=== PATIENT | male | born 1950 | race Hispanic/Latino ===

== ENCOUNTER 2018-08-10 16:23 | Emergency (ER) | payer SELFPAY ==
[2018-08-10 17:31] LABS: Basophils # (Auto) 0.1 K/mm3 (0.0-0.1); Basophils % (Auto) 1.1 % (0.0-1.8); Eosinophils # (Auto) 0.1 K/mm3 (0.0-0.4); Eosinophils % (Auto) 0.8 % (0.0-4.3); Hematocrit 40.7 % (35.5-45.6); Hemoglobin 14.2 gm/dl (11.8-15.2); Lymphocytes # (Auto) 1.6 K/mm3 (1.2-5.4); Lymphocytes % (Auto) 17.6 % (13.4-35.0); Mean Corpuscular HGB Conc 35 % (32-34); Mean Corpuscular Volume 92 fl (84-94); Monocytes # (Auto) 0.8 K/mm3 (0.0-0.8); Monocytes % (Auto) 8.4 % (0.0-7.3); Red Blood Count 4.43 M/mm3 (3.65-5.03); Red Cell Distribution Width 13.1 % (13.2-15.2)
[2018-08-10 17:34] LABS: Bilirubin,Urine NEG (Negative); Blood,Urine NEG (Negative); Color,Urine Yellow (Yellow); Protein,Urine <15 mg/dL mg/dL (Negative); Urobilinogen,Urine < 2.0 mg/dL (<2.0)
--- NOTE | 2018-08-10 17:42 | Emergency Department Report ---
ED General Adult HPI - General Chief complaint: Hyperglycemia Stated complaint: SENT FROM [facility] Time Seen by Provider: 08/10/18 16:58 Source: patient Mode of arrival: Ambulatory Limitations: No Limitations - History of Present Illness Initial comments: This is a 68-year-old male nontoxic, well nourished in appearance, no acute signs of distress presents to the ED for hyperglycemia. Patient stated that he stays in [place] and has been out of his medications. Patient stated that he takes Lantus 50 units night time, Levemir 50 units night time, and Metformin 500 mg BID. Patient stated that he was sent to the ED for medication refill. Patient denies any abdominal pain, weakness, fever, chills, headache, nausea, vomiting, chest pain, shortness of breathe, numbness or tingling. Patient denies any back pain. PAtient denies any urinary symptoms. Severity scale (0 -10): 0 Improves with: none Worsens with: none Associated Symptoms: denies other symptoms. denies: confusion, chest pain, cough, diaphoresis, fever/chills, headaches, loss of appetite, malaise, nausea/vomiting, rash, seizure, shortness of breath, syncope, weakness Treatments Prior to Arrival: none - Related Data Previous Rx's Medication Instructions Recorded Last Taken Type Insulin Detemir [Levemir] 50 unit SQ QHS 30 Days vial 08/10/18 Unknown Rx Insulin Glargine [Lantus] 50 unit SUB-Q QHS 30 Days ml 08/10/18 Unknown Rx metFORMIN [Glucophage] 500 mg PO BID #60 tablet 08/10/18 Unknown Rx Allergies Allergy/AdvReac Type Severity Reaction Status Date / Time benztropine [From Cogentin] Allergy Unknown Verified 08/10/18 16:45 haloperidol [From Haldol] Allergy Swelling Verified 08/10/18 16:45 Sulfa (Sulfonamide Allergy Unknown Verified 08/10/18 16:45 Antibiotics) ED Review of Systems ROS: Stated complaint: SENT FROM [facility] Other details as noted in HPI Constitutional: denies: chills, fever Eyes: denies: eye pain, eye discharge, vision change ENT: denies: ear pain, throat pain Respiratory: denies: cough, shortness of breath, wheezing Cardiovascular: denies: chest pain, palpitations Endocrine: no symptoms reported Gastrointestinal: denies: abdominal pain, nausea, diarrhea Genitourinary: denies: urgency, dysuria Musculoskeletal: denies: back pain, joint swelling, arthralgia Skin: denies: rash, lesions Neurological: denies: headache, weakness, paresthesias Psychiatric: denies: anxiety, depression Hematological/Lymphatic: denies: easy bleeding, easy bruising ED Past Medical Hx - Past Medical History Hx Hypertension: Yes Hx CVA: Yes (no deficits) Hx Heart Attack/AMI: Yes Hx Diabetes: Yes Hx Psychiatric Treatment: Yes (bipolar,pariod schizaphrina,manic depression ,multiple personalities) Additional medical history: heart disease,brain anursym, pt still drinks alcohol and smokes pot - Surgical History Past Surgical History?: No Additional Surgical History: ICU intubated with stroke- detoxing of alcohol and drugs - Social History Smoking Status: Current Every Day Smoker Substance Use Type: Alcohol, Marijuana - Medications Home Medications: Home Medications Medication Instructions Recorded Confirmed Last Taken Type Insulin Detemir [Levemir] 50 unit SQ QHS 30 Days vial 08/10/18 Unknown Rx Insulin Glargine [Lantus] 50 unit SUB-Q QHS 30 Days ml 08/10/18 Unknown Rx metFORMIN [Glucophage] 500 mg PO BID #60 tablet 08/10/18 Unknown Rx ED Physical Exam - General Limitations: No Limitations General appearance: alert, in no apparent distress - Head Head exam: Present: atraumatic, normocephalic - Eye Eye exam: Present: normal appearance - Neck Neck exam: Present: normal inspection, full ROM - Respiratory Respiratory exam: Present: normal lung sounds bilaterally. Absent: respiratory distress, wheezes, rales, rhonchi, chest wall tenderness, accessory muscle use, decreased breath sounds, prolonged expiratory - Cardiovascular Cardiovascular Exam: Present: regular rate, normal rhythm, normal heart sounds. Absent: bradycardia, tachycardia, irregular rhythm, systolic murmur, diastolic murmur, rubs, gallop - GI/Abdominal GI/Abdominal exam: Present: soft, normal bowel sounds. Absent: distended, tenderness, guarding, rebound, rigid, diminished bowel sounds - Rectal Rectal exam: Present: deferred - Extremities Exam Extremities exam: Present: normal inspection, full ROM - Back Exam Back exam: Present: normal inspection, full ROM - Neurological Exam Neurological exam: Present: alert, oriented X3 - Psychiatric Psychiatric exam: Present: normal affect, normal mood - Skin Skin exam: Present: warm, dry, intact, normal color. Absent: rash ED Course Vital Signs 08/10/18 16:37 Temperature 97.9 F Pulse Rate 74 Respiratory 18 Rate Blood Pressure 151/79 O2 Sat by Pulse 98 Oximetry - Reevaluation(s) Reevaluation #1: 08/10/18 17:42 Patient is speaking in full sentences with no signs of distress noted. - Consultations Consultation #1: 08/10/18 19:15 Patient has been consulted with Rafael Christine about patient history, physical exam, and labs and agrees to ED plan of care and discharge plan of care. ED Medical Decision Making - Lab Data Result diagrams: 08/10/18 17:12 08/10/18 17:12 - Medical Decision Making This is a 68-year-old male that presents with hyperglycemia. Patient is stable and was examined by me. Patient does have records from [place] with his past medications that he takes. Patient has requested for medication refill. Labs obtained and unremarkable with elevated glucose. Patient was consulted with Dr. Larose. Patient received 1L normal saline and 8 units Insulin. Glucose finger stick lowered to low 200s. Patient will be discharged with his past medications that he needs. Patient was instructed to Follow-up with a primary care doctor in 3-5 days or if symptoms worsen and continue return to emergency room as soon as possible. At time of discharge, the patient does not seem toxic or ill in appearance. No acute signs of distress noted. Patient agrees to discharge treatment plan of care. No further questions noted by the patient. Critical care attestation.: If time is entered above; I have spent that time in minutes in the direct care of this critically ill patient, excluding procedure time. ED Disposition Clinical Impression: Hyperglycemia, Medication refill Disposition: DC-01 TO HOME OR SELFCARE Is pt being admited?: No Does the pt Need Aspirin: No Condition: Stable Instructions: Diabetic Hyperglycemia (ED) Additional Instructions: Follow-up with a primary care doctor in 3-5 days or if symptoms worsen and continue return to emergency room as soon as possible. Prescriptions: Insulin Detemir [Levemir] 50 unit SQ QHS 30 Days vial Insulin Glargine [Lantus] 50 unit SUB-Q QHS 30 Days ml metFORMIN [Glucophage] 500 mg PO BID #60 tablet Referrals: PRIMARY CARE, [Referring] - 3-5 Days KALIE RICHTER MD [Staff Physician] - 3-5 Days [facility] [Outside] - 3-5 Days [facility] [Outside] - 3-5 Days Forms: Work/School Release Form(ED)
[2018-08-10 17:48] LABS: WBC,Urine < 1.0 /HPF (0.0-6.0)
[2018-08-10 17:53] LABS: BUN/Creatinine Ratio 19; Blood Urea Nitrogen 13 mg/dL (9-20); Calcium 9.2 mg/dL (8.4-10.2); Hemolysis Index 6
[2018-08-10] MEDS ORDERED: NACL 0.9% 1000 ML 1,000 ML IV ONE (17:56)
[2018-08-10] MEDS ORDERED: HumuLIN R IV ONE (17:56)
[2018-08-10 18:03] LABS: Platelet Count 158 K/mm3 (140-440)
[2018-08-10 20:22] VITALS: BP 145/82
== END 2018-08-10 21:42 | disposition home or self-care (01) ==
LOC: ED 16:23
DX: E11.65 Type 2 diabetes mellitus with hyperglycemia (principal); Z76.0 Encounter for issue of repeat prescription; I11.0 Hypertensive heart disease with heart failure; F31.9 Bipolar disorder, unspecified; F20.0 Paranoid schizophrenia; F17.200 Nicotine dependence, unspecified, uncomplicated; Z88.2 Allergy status to sulfonamides; Z88.5 Allergy status to narcotic agent
CPT/HCPCS: 36415; 80048; 81001; 82805; 82962; 85025; 96361; 96374; 99283; J7030; J1815

== ENCOUNTER 2018-08-11 20:03 | Emergency (ER) | payer MEDICARE ==
[2018-08-11 20:56] LABS: Basophils % (Auto) 0.3 % (0.0-1.8); Eosinophils # (Auto) 0.1 K/mm3 (0.0-0.4); Hematocrit 41.1 % (35.5-45.6); Hemoglobin 14.2 gm/dl (11.8-15.2); Lymphocytes # (Auto) 1.8 K/mm3 (1.2-5.4); Lymphocytes % (Auto) 23.4 % (13.4-35.0); Mean Corpuscular HGB Conc 34 % (32-34); Mean Corpuscular Volume 93 fl (84-94); Monocytes # (Auto) 0.8 K/mm3 (0.0-0.8); Monocytes % (Auto) 11.2 % (0.0-7.3); Platelet Count 207 K/mm3 (140-440); Red Blood Count 4.41 M/mm3 (3.65-5.03); Red Cell Distribution Width 13.1 % (13.2-15.2)
[2018-08-11 21:16] LABS: Bilirubin,Urine NEG (Negative); Blood,Urine NEG (Negative); Color,Urine Straw (Yellow); Protein,Urine <15 mg/dL mg/dL (Negative); Urobilinogen,Urine < 2.0 mg/dL (<2.0)
[2018-08-11 21:23] LABS: BUN/Creatinine Ratio 19; Blood Urea Nitrogen 13 mg/dL (9-20); Calcium 9.2 mg/dL (8.4-10.2); Hemolysis Index 10
[2018-08-11 21:23] LABS: WBC,Urine < 1.0 /HPF (0.0-6.0)
--- NOTE | 2018-08-11 21:23 | Emergency Department Report ---
ED General Adult HPI - General Chief complaint: Psych Stated complaint: SUICIDAL Time Seen by Provider: 08/11/18 21:05 Source: patient Mode of arrival: Ambulatory Limitations: No Limitations - History of Present Illness Initial comments: 68 y.o. male with history of diabetes mellitus, depression, presents with complaint of feeling depressed and feeling suicidal. Patient states that he was recently released from [facility] facility. Patient states he was to be transitioned to a 12-step program. He since states that the [place] facility did not provide him with his diabetes medications and he states that dealing with this, him having no medications has made him feel suicidal. She denies any auditory hallucinations or homicidal ideation. Patient also states that the new psych Juan Pablo was prescribed a [place] are making him feel suicidal as well. - Related Data Previous Rx's Medication Instructions Recorded Last Taken Type Insulin Detemir [Levemir] 50 unit SQ QHS 30 Days vial 08/10/18 Unknown Rx Insulin Glargine [Lantus] 50 unit SUB-Q QHS 30 Days ml 08/10/18 Unknown Rx metFORMIN [Glucophage] 500 mg PO BID #60 tablet 08/10/18 Unknown Rx Allergies Allergy/AdvReac Type Severity Reaction Status Date / Time benztropine [From Cogentin] Allergy Unknown Verified 08/10/18 16:45 haloperidol [From Haldol] Allergy Swelling Verified 08/10/18 16:45 Sulfa (Sulfonamide Allergy Unknown Verified 08/10/18 16:45 Antibiotics) ED Review of Systems ROS: Stated complaint: SUICIDAL Other details as noted in HPI Constitutional: denies: chills, fever Eyes: denies: eye pain, eye discharge, vision change ENT: denies: ear pain, throat pain Respiratory: denies: cough, shortness of breath, wheezing Cardiovascular: denies: chest pain, palpitations Endocrine: no symptoms reported Gastrointestinal: denies: abdominal pain, nausea, diarrhea Genitourinary: denies: urgency, dysuria Musculoskeletal: denies: back pain, joint swelling, arthralgia Skin: denies: rash, lesions Neurological: denies: headache, weakness, paresthesias Psychiatric: depression, suicidal thoughts. denies: anxiety Hematological/Lymphatic: denies: easy bleeding, easy bruising ED Past Medical Hx - Past Medical History Hx Hypertension: Yes Hx CVA: Yes (no deficits) Hx Heart Attack/AMI: Yes Hx Diabetes: Yes Hx Psychiatric Treatment: Yes (bipolar,pariod schizaphrina,manic depression,multiple personalities) Additional medical history: heart disease,brain anursym, pt still drinks alcohol and smokes pot - Surgical History Past Surgical History?: No Additional Surgical History: ICU intubated with stroke- detoxing of alcohol and drugs - Social History Smoking Status: Current Some Day Smoker Substance Use Type: None - Medications Home Medications: Home Medications Medication Instructions Recorded Confirmed Last Taken Type Insulin Detemir [Levemir] 50 unit SQ QHS 30 Days vial 08/10/18 Unknown Rx Insulin Glargine [Lantus] 50 unit SUB-Q QHS 30 Days ml 08/10/18 Unknown Rx metFORMIN [Glucophage] 500 mg PO BID #60 tablet 08/10/18 Unknown Rx ED Physical Exam - General Limitations: No Limitations General appearance: alert, in no apparent distress, other (eating in no acute distress) - Head Head exam: Present: atraumatic, normocephalic - Eye Eye exam: Present: normal appearance - ENT ENT exam: Present: mucous membranes moist - Neck Neck exam: Present: normal inspection - Respiratory Respiratory exam: Present: normal lung sounds bilaterally. Absent: respiratory distress - Cardiovascular Cardiovascular Exam: Present: regular rate, normal rhythm. Absent: systolic murmur, diastolic murmur, rubs, gallop - GI/Abdominal GI/Abdominal exam: Present: soft, normal bowel sounds - Rectal Rectal exam: Present: deferred - Extremities Exam Extremities exam: Present: normal inspection - Back Exam Back exam: Present: normal inspection - Neurological Exam Neurological exam: Present: alert, oriented X3 - Psychiatric Psychiatric exam: Present: depressed, suicidal ideation. Absent: homicidal ideation - Skin Skin exam: Present: warm, dry, intact, normal color. Absent: rash ED Course Vital Signs 08/11/18 08/11/18 08/12/18 20:29 22:42 01:00 Temperature 97.6 F 98.3 F 98.2 F Pulse Rate 88 77 82 Respiratory 18 18 Rate Blood Pressure 148/81 Blood Pressure 108/44 138/65 [Left] O2 Sat by Pulse 96 99 98 Oximetry ED Medical Decision Making - Lab Data Result diagrams: 08/11/18 20:40 08/11/18 23:55 - Medical Decision Making Patient placed on 1013. Patient received two liters of normal saline and IV insulin while in the ER. Patient's repeat CMP has improved and patient is medically clear. Patient currently awaiting potential transfer to inpatient psychiatric facility. - Differential Diagnosis DKA; Psychosis; Dehdyration; Anemia; Critical care attestation.: If time is entered above; I have spent that time in minutes in the direct care of this critically ill patient, excluding procedure time. ED Disposition Clinical Impression: Hyperglycemia, Depression, Suicidal ideation Disposition: DC/TX-65 PSY HOSP/PSY UNIT Is pt being admited?: No Condition: Stable Time of Disposition: 06:45 Print Language: MONTSERRATIAN
[2018-08-11 21:24] LABS: Amphetamine Screen,Urine PRESUMPTIVE NEGATIVE; Benzodiazepines Screen,Urine PRESUMPTIVE NEGATIVE; Cannabinoid Screen,Urine PRESUMPTIVE NEGATIVE; Cocaine Screen,Urine PRESUMPTIVE NEGATIVE; Methadone Screen,Urine PRESUMPTIVE NEGATIVE; Opiate Screen,Urine PRESUMPTIVE NEGATIVE
[2018-08-11] MEDS ORDERED: HumuLIN R IV ONE (21:26)
[2018-08-11] MEDS ORDERED: NACL 0.9% 1000 ML 1,000 ML IV ONE ×2 (21:27)
[2018-08-12 00:42] LABS: Alanine Aminotransferase 12 units/L (7-56); Albumin 4.1 g/dL (3.9-5); BUN/Creatinine Ratio 19; Blood Urea Nitrogen 13 mg/dL (9-20); Calcium 8.6 mg/dL (8.4-10.2); Hemolysis Index 11
[2018-08-12 03:17] VITALS: BP 138/65
[2018-08-12] MEDS ORDERED: HumuLIN R IV ONE (06:53)
[2018-08-12] MEDS ORDERED: GLUCOPHAGE PO SCH (11:00)
[2018-08-12] MEDS ORDERED: HumuLIN R SUB-Q ONE (13:19)
[2018-08-12] MEDS ORDERED: LANTUS SUB-Q SCH (22:00)
== END 2018-08-12 14:20 ==
LOC: ED 20:03 → EEVIPCON 20:03 → ED 08-12 14:20
DX: F32.9 Major depressive disorder, single episode, unspecified (principal); E11.65 Type 2 diabetes mellitus with hyperglycemia; I10 Essential (primary) hypertension; F17.200 Nicotine dependence, unspecified, uncomplicated; Z86.73 Personal history of transient ischemic attack (TIA), and cerebral infarction without residual deficits; Z88.8 Allergy status to other drugs, medicaments and biological substances; Z88.2 Allergy status to sulfonamides; Z79.4 Long term (current) use of insulin
CPT/HCPCS: 36415; 80048; 80053; 80307; 81001; 82962; 85025; 96361; 96372; 96374; 96376; 99285; G0480; J7030; 80320; J1815

== ENCOUNTER 2019-05-07 15:29 | Inpatient (IN) | payer MEDICARE ==
[2019-05-07 20:41] LABS: Basophils % (Auto) 0.7 % (0.0-1.8); Eosinophils # (Auto) 0.2 K/mm3 (0.0-0.4); Eosinophils % (Auto) 3.4 % (0.0-4.3); Hematocrit 32.4 % (35.5-45.6); Lymphocytes # (Auto) 1.5 K/mm3 (1.2-5.4); Lymphocytes % (Auto) 24.5 % (13.4-35.0); Mean Corpuscular HGB Conc 34 % (32-34); Mean Corpuscular Volume 91 fl (84-94); Monocytes # (Auto) 0.4 K/mm3 (0.0-0.8); Monocytes % (Auto) 7.5 % (0.0-7.3); Platelet Count 387 K/mm3 (140-440); Red Blood Count 3.55 M/mm3 (3.65-5.03); Red Cell Distribution Width 13.5 % (13.2-15.2)
[2019-05-07 21:01] LABS: Chol/HDL Ratio 6.66 %
[2019-05-07 21:03] LABS: Alanine Aminotransferase 27 units/L (7-56); BUN/Creatinine Ratio 18; Blood Urea Nitrogen 18 mg/dL (9-20); Calcium 8.5 mg/dL (8.4-10.2); Hemolysis Index 19
[2019-05-07] MEDS: GLUCOPHAGE PO SCH (21:55)
[2019-05-07] MEDS ORDERED: LANTUS SUB-Q SCH (22:00)
[2019-05-07] MEDS ORDERED: INSULIN DETEMIR 50 UNIT SQ SCH (22:00)
[2019-05-08] MEDS: GLUCOPHAGE PO SCH ×2 (09:25→21:39)
--- NOTE | 2019-05-08 12:14 | Consultation ---
History of Present Illness - Reason for Consult Consult date: 05/08/19 medical mx - History of Present Illness The patient is a 69 y/o retired male with history of Bipolar disorder, Schizophrenia, Cocaine use disorder, Alcohol use disorder and multiple medical problems including Obesity, HLD, HTN, DM, BPH and urinary retention on mendez's. He was transferred from outside hospital because he made suicidal threats with plan to shoot self in the head. medicine service consulted for medical mx. patient denies any chest pain or SOB. Past History Past Medical History: diabetes, hypertension, hyperlipidemia, other (urinary retension ) Past Surgical History: No surgical history Social history: smoking, alcohol abuse, other (cocaine abuse) Family history: diabetes, hypertension Medications and Allergies Allergies Allergy/AdvReac Type Severity Reaction Status Date / Time benztropine [From Cogentin] Allergy Unknown Verified 08/10/18 16:45 haloperidol [From Haldol] Allergy Swelling Verified 08/10/18 16:45 Sulfa (Sulfonamide Allergy Unknown Verified 08/10/18 16:45 Antibiotics) Home Medications Medication Instructions Recorded Confirmed Last Taken Type Insulin Detemir [Levemir] 50 unit SQ QHS 08/12/18 08/12/18 Unknown History Insulin Glargine [Lantus] 50 unit SUB-Q QHS 08/12/18 08/12/18 Unknown History metFORMIN [Glucophage] 500 mg PO BID 08/12/18 08/12/18 Unknown History Atorvastatin (Nf) [Lipitor (Nf)] 10 mg PO QHS 05/08/19 05/08/19 Unknown History Maikel Scott 1,000 mg PO QHS 05/08/19 05/08/19 Unknown History Maikel Scott 500 mg PO QAM 05/08/19 05/08/19 1 Day Ago History ~05/07/19 500 mg Metoprolol [Lopressor] 25 mg PO BID 05/08/19 05/08/19 05/07/19 History 25 mg Tamsulosin [Flomax] 0.4 mg PO QHS 05/08/19 05/08/19 Unknown History glipiZIDE [Glucotrol] 5 mg PO QDAY 05/08/19 05/08/19 1 Day Ago History ~05/07/19 5 mg traZODone [Desyrel] 100 mg PO QHS 05/08/19 05/08/19 Unknown History Active Meds: Active Medications Insulin Glargine (Lantus) 50 units SUB-Q QHS [facility] Last Admin: 05/07/19 22:50 Dose: 50 units Documented by: Insulin Human Lispro (Humalog) 0 unit SUB-Q ACHS [facility]; Protocol Metformin HCl (Glucophage) 500 mg PO BID [facility] Last Admin: 05/08/19 09:25 Dose: 500 mg Documented by: Review of Systems Constitutional: no weight loss, no anorexia Ears, nose, mouth and throat: no ear pain, no decreased hearing, no nasal congestion, no nasal discharge, no bleeding gums, no neck lump Cardiovascular: no chest pain, no orthopnea, no palpitations Respiratory: no cough, no congestion, no wheezing Gastrointestinal: no abdominal pain, no nausea, no vomiting Genitourinary Male: no hematuria, no flank pain, no discharge Rectal: no hemorrhoids Musculoskeletal: no neck stiffness, no morning stiffness, no muscle weakness Integumentary: no rash, no pruritis, no redness, no sores Neurological: no head injury, no weakness, no numbness, no tingling Psychiatric: irritability, mood swings Endocrine: no cold intolerance, no heat intolerance, no polyuria Hematologic/Lymphatic: no easy bruising, no easy bleeding Allergic/Immunologic: no urticaria Exam - Constitutional General appearance: Present: no acute distress, well-nourished - EENT Eyes: Present: PERRL ENT: hearing intact, clear oral mucosa - Neck Neck: Present: supple, normal ROM - Respiratory Respiratory effort: normal Respiratory: bilateral: CTA - Cardiovascular Heart Sounds: Present: S1 & S2. Absent: rub, click - Extremities Extremities: pulses symmetrical, No edema Peripheral Pulses: within normal limits - Abdominal General gastrointestinal: Present: soft, non-tender, non-distended, normal bowel sounds - Integumentary Integumentary: Present: clear, warm, dry - Musculoskeletal Musculoskeletal: gait normal, strength equal bilaterally - Psychiatric Psychiatric: appropriate mood/affect, intact judgment & insight - Neurologic Neurologic: CNII-XII intact, moves all extremities Results - Labs CBC & Chem 7: 05/07/19 20:21 05/07/19 20:21 Labs: Abnormal lab results 05/07/19 05/07/19 05/07/19 Range/Units 20:12 20:21 20:21 RBC 3.55 L (3.65-5.03) M/mm3 Hgb 11.0 L (11.8-15.2) gm/dl Hct 32.4 L (35.5-45.6) % [place] % (Auto) 7.5 H (0.0-7.3) % Sodium 134 L (137-145) mmol/L Chloride 94.3 L (98-107) mmol/L Glucose 355 H (75-100) mg/dL POC Glucose 401 H (70-105) Hemoglobin A1c (4-6) % Alkaline Phosphatase 167 H (35-129) units/L Albumin 3.0 L (3.9-5) g/dL Triglycerides (2-149) mg/dL HDL Cholesterol (40-59) mg/dL 05/07/19 05/07/19 05/08/19 Range/Units 20:21 20:21 06:40 RBC (3.65-5.03) M/mm3 Hgb (11.8-15.2) gm/dl Hct (35.5-45.6) % [place] % (Auto) (0.0-7.3) % Sodium (137-145) mmol/L Chloride (98-107) mmol/L Glucose (75-100) mg/dL POC Glucose 195 H (70-105) Hemoglobin A1c 7.2 H (4-6) % Alkaline Phosphatase (35-129) units/L Albumin (3.9-5) g/dL Triglycerides 171 H (2-149) mg/dL HDL Cholesterol 21 L (40-59) mg/dL 05/08/19 Range/Units 11:48 RBC (3.65-5.03) M/mm3 Hgb (11.8-15.2) gm/dl Hct (35.5-45.6) % [place] % (Auto) (0.0-7.3) % Sodium (137-145) mmol/L Chloride (98-107) mmol/L Glucose (75-100) mg/dL POC Glucose 306 H (70-105) Hemoglobin A1c (4-6) % Alkaline Phosphatase (35-129) units/L Albumin (3.9-5) g/dL Triglycerides (2-149) mg/dL HDL Cholesterol (40-59) mg/dL Assessment and Plan Acute psychosis/ SI - Management per primary Chronic medical issues Uncontrolled diabetes mellitus type 2 Hypertension Hyperlipidemia Obesity Urinary retention on mendez BPH - We'll resume home medications for hypertension and hyperlipidemia - We'll start long-acting insulin and sliding scale of insulin - Monitor blood glucose every before meals and at bedtime - Continue supportive care, monitor clinically - monitor UOP with mendez, cont flomax - DVT prophylaxis with Lovenox
[2019-05-08] MEDS ORDERED: D50W (25GM) Vial IV PRN (12:19)
[2019-05-08] MEDS: HumaLOG SUB-Q SCH ×3 (12:24→21:40)
[2019-05-08] MEDS: GLUCOTROL PO SCH (13:01)
[2019-05-08 18:05] LABS: Bilirubin,Urine NEG (Negative); Blood,Urine MOD (Negative); Color,Urine Yellow (Yellow); Mucus,Urine FEW /HPF; Urobilinogen,Urine < 2.0 mg/dL (<2.0)
[2019-05-08] MEDS: ENOXAPARIN SUB-Q SCH (21:39)
[2019-05-08] MEDS: METOPROLOL PO SCH (21:39)
[2019-05-08] MEDS: FLOMAX PO SCH (21:40)
[2019-05-08] MEDS: LANTUS SUB-Q SCH (21:51)
--- NOTE | 2019-05-09 03:52 | History and Physical Report ---
GP History & Physical - History of Present Illness Date of admission: 05/07/19 Date of Examination: 05/08/19 Reason for Admission: Danger to self, Impaired reality testing, Failure of Outpatient Treatment, Unable to care for self Chief Complaint: I am looking for a job History of Present Illness: The patient is a 69 y/o retired male with history of Bipolar disorder, Schizophrenia, Cocaine use disorder, Alcohol use disorder and multiple medical problems including Obesity, HLD, HTN, DM, BPH and urinary retention on mendez's. He was transferred from outside hospital because he made suicidal threats with plan to shoot self in the head. Patient is loud, irritable, agitated and uncooperative during my assessment. He is alert and fully oriented. He is grandiose, loud, and delusional. 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 He denies SI/HI/AVH/Paranoia. He admits to using Cocaine and drinking alcohol excessively but refuses to describe pattern of use. He states that he takes Depakote and some other medications for bipolar. He does not know the names of his other meds. Legal Status: Involuntary Patient Problems: Current Active Problems Alcohol use disorder (Acute) Cocaine use disorder (Acute) Schizoaffective disorder, mixed type (Acute) Reaction to Hospitalization: Resistant Medications and Allergies Allergies Allergy/AdvReac Type Severity Reaction Status Date / Time benztropine [From Cogentin] Allergy Unknown Verified 08/10/18 16:45 haloperidol [From Haldol] Allergy Swelling Verified 08/10/18 16:45 Sulfa (Sulfonamide Allergy Unknown Verified 08/10/18 16:45 Antibiotics) Home Medications Medication Instructions Recorded Confirmed Last Taken Type Insulin Detemir [Levemir] 50 unit SQ QHS 08/12/18 08/12/18 Unknown History Insulin Glargine [Lantus] 50 unit SUB-Q QHS 08/12/18 08/12/18 Unknown History metFORMIN [Glucophage] 500 mg PO BID 08/12/18 08/12/18 Unknown History Atorvastatin (Nf) [Lipitor (Nf)] 10 mg PO QHS 05/08/19 05/08/[address] 1,000 mg PO QHS 05/08/19 05/08/[address] 500 mg PO QAM 05/08/19 05/08/19 1 Day Ago History ~05/07/19 500 mg Metoprolol [Lopressor] 25 mg PO BID 05/08/19 05/08/19 05/07/19 History 25 mg Tamsulosin [Flomax] 0.4 mg PO QHS 05/08/19 05/08/19 Unknown History glipiZIDE [Glucotrol] 5 mg PO QDAY 05/08/19 05/08/19 1 Day Ago History ~05/07/19 5 mg traZODone [Desyrel] 100 mg PO QHS 05/08/19 05/08/19 Unknown History Active Meds: Active Medications Atorvastatin Calcium (Lipitor) 10 mg PO QHS [facility] Last Admin: 05/08/19 21:39 Dose: 10 mg Documented by: Dextrose (D50w (25gm) Vial) 50 gm IV PRN PRN PRN Reason: Hypoglycemia Enoxaparin Sodium (Lovenox) 40 mg SUB-Q QDAY@2200 [facility] Last Admin: 05/08/19 21:39 Dose: 40 mg Documented by: Glipizide (Glucotrol) 5 mg PO QDAY [facility] Last Admin: 05/08/19 13:01 Dose: 5 mg Documented by: Insulin Glargine (Lantus) 20 units SUB-Q [facility] Last Admin: 05/08/19 21:51 Dose: 20 units Documented by: Insulin Human Lispro (Humalog) 0 unit SUB-Q [facility]; Protocol Last Admin: 05/08/19 21:40 Dose: 6 unit Documented by: Metformin HCl (Glucophage) 500 mg PO BID [facility] Last Admin: 05/08/19 21:39 Dose: 500 mg Documented by: Metoprolol Tartrate (Lopressor) 25 mg PO BID [facility] Last Admin: 05/08/19 21:39 Dose: 25 mg Documented by: Tamsulosin HCl (Flomax) 0.4 mg PO QHS [facility] Last Admin: 05/08/19 21:40 Dose: 0.4 mg Documented by: Substance History - Substance History Drug Use: cocaine, marijuana Hx Tobacco Use: Yes Alcohol Use: Yes Past psychiatric history - Past Medical History Past Medical History: diabetes, hypertension, hyperlipidemia, other (BPH, Urinar retention on Mendez's) - past Psychiatric treatment and history Psych: Addictions, Bipolar, Depression, Schizophrenia psychiatric treatment history: Patient reports more than 30 prior inpatient psych admissions. He denies suicidal attempts. He has established out-patient care. - Social History Social history: , Lives alone, other (College educated, retired, mul tiple DUIs, no access to guns per patient) Review of Systems All systems: negative Psychiatric: irritability, mood swings Results - Results Labs/Vitals: Laboratory Last Values WBC 6.0 K/mm3 (4.5-11.0) 05/07/19 20:21 RBC 3.55 M/mm3 (3.65-5.03) L 05/07/19 20:21 Hgb 11.0 gm/dl (11.8-15.2) L 05/07/19 20:21 Hct 32.4 % (35.5-45.6) L 05/07/19 20:21 MCV 91 fl (84-94) 05/07/19 20:21 MCH 31 pg (28-32) 05/07/19 20:21 MCHC 34 % (32-34) 05/07/19 20:21 RDW 13.5 % (13.2-15.2) 05/07/19 20:21 Plt Count 387 K/mm3 (140-440) 05/07/19 20:21 Lymph % (Auto) 24.5 % (13.4-35.0) 05/07/19 20:21 [place] % (Auto) 7.5 % (0.0-7.3) H 05/07/19 20:21 Eos % (Auto) 3.4 % (0.0-4.3) 05/07/19 20:21 Baso % (Auto) 0.7 % (0.0-1.8) 05/07/19 20:21 Lymph # 1.5 K/mm3 (1.2-5.4) 05/07/19 20:21 [place] # 0.4 K/mm3 (0.0-0.8) 05/07/19 20:21 Eos # 0.2 K/mm3 (0.0-0.4) 05/07/19 20:21 Baso # 0.0 K/mm3 (0.0-0.1) 05/07/19 20:21 Seg Neutrophils % 63.9 % (40.0-70.0) 05/07/19 20:21 Seg Neutrophils # 3.8 K/mm3 (1.8-7.7) 05/07/19 20:21 Sodium 134 mmol/L (137-145) L 05/07/19 20:21 Potassium 4.3 mmol/L (3.6-5.0) 05/07/19 20:21 Chloride 94.3 mmol/L (98-107) L 05/07/19 20:21 Carbon Dioxide 25 mmol/L (22-30) 05/07/19 20:21 Anion Gap 19 mmol/L 05/07/19 20:21 BUN 18 mg/dL (9-20) 05/07/19 20:21 Creatinine 1.0 mg/dL (0.8-1.5) 05/07/19 20:21 Estimated GFR > 60 ml/min 05/07/19 20:21 BUN/Creatinine Ratio 18 % 05/07/19 20:21 Glucose 355 mg/dL (75-100) H 05/07/19 20:21 POC Glucose 260 (70-105) H 05/08/19 20:17 Hemoglobin A1c 7.2 % (4-6) H 05/07/19 20:21 Calcium 8.5 mg/dL (8.4-10.2) 05/07/19 20:21 Total Bilirubin 0.20 mg/dL (0.1-1.2) 05/07/19 20:21 AST 16 units/L (5-40) 05/07/19 20:21 ALT 27 units/L (7-56) 05/07/19 20:21 Alkaline Phosphatase 167 units/L (35-129) H 05/07/19 20:21 Total Protein 6.4 g/dL (6.3-8.2) 05/07/19 20:21 Albumin 3.0 g/dL (3.9-5) L 05/07/19 20:21 Albumin/Globulin Ratio 0.9 % 05/07/19 20:21 Triglycerides 171 mg/dL (2-149) H 05/07/19 20:21 Cholesterol 140 mg/dL (50-199) 05/07/19 20:21 LDL Cholesterol Direct 95 mg/dL (50-130) 05/07/19 20:21 HDL Cholesterol 21 mg/dL (40-59) L 05/07/19 20:21 Cholesterol/HDL Ratio 6.66 % 05/07/19 20:21 Urine Color Yellow (Yellow) 05/08/19 17:00 Urine Turbidity Clear (Clear) 05/08/19 17:00 Urine pH 6.0 (5.0-7.0) 05/08/19 17:00 Ur Specific [place] 1.010 (1.003-1.030) 05/08/19 17:00 Urine Protein 100 mg/dl mg/dL (Negative) 05/08/19 17:00 Urine Glucose (UA) 50 mg/dL (Negative) 05/08/19 17:00 Urine Ketones Neg mg/dL (Negative) 05/08/19 17:00 Urine Blood Mod (Negative) 05/08/19 17:00 Urine Nitrite Neg (Negative) 05/08/19 17:00 Urine Bilirubin Neg (Negative) 05/08/19 17:00 Urine Urobilinogen < 2.0 mg/dL (<2.0) 05/08/19 17:00 Ur Leukocyte Esterase Neg (Negative) 05/08/19 17:00 Urine WBC (Auto) 3.0 /HPF (0.0-6.0) 05/08/19 17:00 Urine RBC (Auto) 19.0 /HPF (0.0-6.0) 05/08/19 17:00 U Epithel Cells (Auto) < 1.0 /HPF (0-13.0) 05/08/19 17:00 Urine Mucus Few /HPF 05/08/19 17:00 Last Vital Signs Temp 98.2 F 05/08/19 09:15 Pulse 74 05/08/19 19:10 Resp 20 05/08/19 09:15 BP 133/75 05/08/19 09:15 Pulse Ox 100 05/08/19 19:10 Physical Examination - Constitutional Vitals: Vital Signs Temp Pulse Resp BP Pulse Ox 98.2 F 74 20 133/75 100 05/08/19 09:15 05/08/19 19:10 05/08/19 09:15 05/08/19 09:15 05/08/19 19:10 Temperature -Last 24 Hours Temperature 98.2 F General appearance: Present: no acute distress - EENT Eyes: Present: PERRL, EOM intact ENT: hearing intact, clear oral mucosa - Neck Neck: Present: supple, normal ROM - Respiratory Respiratory effort: normal Mental Status Exam - Vital signs Last Vital Signs Temp 98.2 F 05/08/19 09:15 Pulse 74 05/08/19 19:10 Resp 20 05/08/19 09:15 BP 133/75 05/08/19 09:15 Pulse Ox 100 05/08/19 19:10 - Exam Orientation: time, place, person Affect: agitated Mood: congruent with affect Thought content: delusions, grandiose Thought Process: Intact Perceptions: none Speech: normal rate and pattern Concentration: distractible Motor activity: restless, agitated Level of consciousness: alert Memory: Intact Interaction: hostile, irritable, guarded, uncooperative Assessment and Plan - Psychiatric problem (1) Schizoaffective disorder, mixed type Current Visit: Yes Status: Acute plan to address problem: Patient will be admitted for inpatient psychiatric evaluation, medication adjustment and close monitoring The patient's behavior, mood, sleep and appetite will be closely monitored. Patient will be enrolled in individual and group therapeutic sessions and encouraged to attend. Patient will be provided with a safe and structured environment. Patient's physical health needs will be addressed by the Hospitalist. Social Assessment will be completed and the Tugboat Mate will work with patient and family to ensure a suitable and safe disposition Medication adjustment will be made as clinically indicated (2) Alcohol use disorder Current Visit: Yes Status: Acute plan to address problem: As above (3) Cocaine use disorder Current Visit: Yes Status: Acute plan to address problem: As above Physician Certification - Certification Statement Physician Certification Statement: This is an acknowledgement statement that SALVADOR RYAN is a 69 year old M who requires inpatient psychiatric admission for treatment which could reasonably be expected to improve the patient's condition for Schizoaffective disorder Estimated period of time patient will need to remain in the hospital: 7 days Plan for post-hospital care: Out-patient follow up
[2019-05-09] MEDS ORDERED: GEODON IM PRN (04:38)
[2019-05-09] MEDS: HumaLOG SUB-Q SCH ×4 (08:13→21:45)
[2019-05-09] MEDS: GLUCOTROL PO SCH (09:11)
[2019-05-09] MEDS: GLUCOPHAGE PO SCH ×2 (09:11→21:46)
[2019-05-09] MEDS: METOPROLOL PO SCH ×2 (09:12→21:46)
--- NOTE | 2019-05-09 13:06 | Progress Note ---
Subjective Date of service: 05/09/19 Principal diagnosis: Schizoaffective disorder bipolar type Subjective Comment: Patient is calmer and pleasant today. He is apologetic for his behavior yesterday. He is still delusional and labile. He is grandiose. He reports being on Seroquel in the past and found it beneficial. MSE: Orientation: time, place, person Affect: normal Mood: congruent with affect Thought content: delusions, grandiose Thought Process: Intact Perceptions: none Speech: normal rate and pattern Concentration: distractible Motor activity: restless Level of consciousness: alert Memory: Intact Interaction: calm and cooperative Objective - Criteria for Continued Treatment Criteria for Continued Treatment: Stablizing Level of Functioning, Improving Emotional/Socia - Objective Observation Participation Level: Moderate Assessment and Plan - Patient Problems (1) Schizoaffective disorder, mixed type Current Visit: Yes Status: Acute Plan to address problem: Patient will be admitted for inpatient psychiatric evaluation, medication adjustment and close monitoring The patient's behavior, mood, sleep and appetite will be closely monitored. Patient will be enrolled in individual and group therapeutic sessions and encouraged to attend. Patient will be provided with a safe and structured environment. Patient's physical health needs will be addressed by the Hospitalist. Social Assessment will be completed and the Business Objects Developer will work with patient and family to ensure a suitable and safe disposition Medication adjustment will be made as clinically indicated Will start Seroquel 50mg qam and 200mg qhs (2) Alcohol use disorder Current Visit: Yes Status: Acute Plan to address problem: As above (3) Cocaine use disorder Current Visit: Yes Status: Acute Plan to address problem: As above Medications and Allergies Allergies Allergy/AdvReac Type Severity Reaction Status Date / Time benztropine [From Cogentin] Allergy Unknown Verified 08/10/18 16:45 haloperidol [From Haldol] Allergy Swelling Verified 08/10/18 16:45 Sulfa (Sulfonamide Allergy Unknown Verified 08/10/18 16:45 Antibiotics) Home Medications Medication Instructions Recorded Confirmed Last Taken Type Insulin Detemir [Levemir] 50 unit SQ QHS 08/12/18 08/12/18 Unknown History Insulin Glargine [Lantus] 50 unit SUB-Q QHS 08/12/18 08/12/18 Unknown History metFORMIN [Glucophage] 500 mg PO BID 08/12/18 08/12/18 Unknown History Atorvastatin (Nf) [Lipitor (Nf)] 10 mg PO QHS 05/08/19 05/08/19 Unknown History Maikel Scott 1,000 mg PO QHS 05/08/19 05/08/19 Unknown History Maikel Scott 500 mg PO QA 05/08/19 05/08/19 1 Day Ago History ~05/07/19 500 mg Metoprolol [Lopressor] 25 mg PO BID 05/08/19 05/08/19 05/07/19 History 25 mg Tamsulosin [Flomax] 0.4 mg PO QHS 05/08/19 05/08/19 Unknown History glipiZIDE [Glucotrol] 5 mg PO QDAY 05/08/19 05/08/19 1 Day Ago History ~05/07/19 5 mg traZODone [Desyrel] 100 mg PO QHS 05/08/19 05/08/19 Unknown History Active Meds: Active Medications Atorvastatin Calcium (Lipitor) 10 mg PO QHS [facility] Last Admin: 05/08/19 21:39 Dose: 10 mg Documented by: Dextrose (D50w (25gm) Vial) 50 gm IV PRN PRN PRN Reason: Hypoglycemia Divalproex Sodium ([place]ote ) 500 mg PO BID [facility] Last Admin: 05/09/19 09:11 Dose: 500 mg Documented by: Enoxaparin Sodium (Lovenox) 40 mg SUB-Q QDAY@2200 [facility] Last Admin: 05/08/19 21:39 Dose: 40 mg Documented by: Glipizide (Glucotrol) 5 mg PO QDAY [facility] Last Admin: 05/09/19 09:11 Dose: 5 mg Documented by: Insulin [facility] ([facility]us) [facility] Last Admin: 05/08/19 21:51 Dose: 20 units Documented by: Insulin Human Lispro (Humalog) 0 unit SUB-Q [facility]; Protocol Last Admin: 05/09/19 12:09 Dose: 4 unit Documented by: Metformin HCl (Glucophage) 500 mg PO BID [facility] Last Admin: 05/09/19 09:11 Dose: 500 mg Documented by: Metoprolol Tartrate (Lopressor) 25 mg PO BID [facility] Last Admin: 05/09/19 09:12 Dose: 25 mg Documented by: Tamsulosin HCl (Flomax) 0.4 mg PO QHS [facility] Last Admin: 05/08/19 21:40 Dose: 0.4 mg Documented by: Ziprasidone (Geodon) 20 mg IM Q4H PRN PRN Reason: Agitation Results - Results Labs/Vitals: Laboratory Last Values WBC 6.0 K/mm3 (4.5-11.0) 05/07/19 20:21 RBC 3.55 M/mm3 (3.65-5.03) L 05/07/19 20:21 Hgb 11.0 gm/dl (11.8-15.2) L 05/07/19 20:21 Hct 32.4 % (35.5-45.6) L 05/07/19 20:21 MCV 91 fl (84-94) 05/07/19 20:21 MCH 31 pg (28-32) 05/07/19 20:21 MCHC 34 % (32-34) 05/07/19 20:21 RDW 13.5 % (13.2-15.2) 05/07/19 20:21 Plt Count 387 K/mm3 (140-440) 05/07/19 20:21 Lymph % (Auto) 24.5 % (13.4-35.0) 05/07/19 20:21 [place] % (Auto) 7.5 % (0.0-7.3) H 05/07/19 20:21 Eos % (Auto) 3.4 % (0.0-4.3) 05/07/19 20:21 Baso % (Auto) 0.7 % (0.0-1.8) 05/07/19 20:21 Lymph # 1.5 K/mm3 (1.2-5.4) 05/07/19 20:21 [place] # 0.4 K/mm3 (0.0-0.8) 05/07/19 20:21 Eos # 0.2 K/mm3 (0.0-0.4) 05/07/19 20:21 Baso # 0.0 K/mm3 (0.0-0.1) 05/07/19 20:21 Seg Neutrophils % 63.9 % (40.0-70.0) 05/07/19 20:21 Seg Neutrophils # 3.8 K/mm3 (1.8-7.7) 05/07/19 20:21 Sodium 134 mmol/L (137-145) L 05/07/19 20:21 Potassium 4.3 mmol/L (3.6-5.0) 05/07/19 20:21 Chloride 94.3 mmol/L (98-107) L 05/07/19 20:21 Carbon Dioxide 25 mmol/L (22-30) 05/07/19 20:21 Anion Gap 19 mmol/L 05/07/19 20:21 BUN 18 mg/dL (9-20) 05/07/19 20:21 Creatinine 1.0 mg/dL (0.8-1.5) 05/07/19 20:21 Estimated GFR > 60 ml/min 05/07/19 20:21 BUN/Creatinine Ratio 18 % 05/07/19 20:21 Glucose 355 mg/dL (75-100) H 05/07/19 20:21 POC Glucose 241 (70-105) H 05/09/19 11:35 Hemoglobin A1c 7.2 % (4-6) H 05/07/19 20:21 Calcium 8.5 mg/dL (8.4-10.2) 05/07/19 20:21 Total Bilirubin 0.20 mg/dL (0.1-1.2) 05/07/19 20:21 AST 16 units/L (5-40) 05/07/19 20:21 ALT 27 units/L (7-56) 05/07/19 20:21 Alkaline Phosphatase 167 units/L (35-129) H 05/07/19 20:21 Total Protein 6.4 g/dL (6.3-8.2) 05/07/19 20:21 Albumin 3.0 g/dL (3.9-5) L 05/07/19 20:21 Albumin/Globulin Ratio 0.9 % 05/07/19 20:21 Triglycerides 171 mg/dL (2-149) H 05/07/19 20:21 Cholesterol 140 mg/dL (50-199) 05/07/19 20:21 LDL Cholesterol Direct 95 mg/dL (50-130) 05/07/19 20:21 HDL Cholesterol 21 mg/dL (40-59) L 05/07/19 20:21 Cholesterol/HDL Ratio 6.66 % 05/07/19 20:21 Urine Color Yellow (Yellow) 05/08/19 17:00 Urine Turbidity Clear (Clear) 05/08/19 17:00 Urine pH 6.0 (5.0-7.0) 05/08/19 17:00 Ur Specific [place] 1.010 (1.003-1.030) 05/08/19 17:00 Urine Protein 100 mg/dl mg/dL (Negative) 05/08/19 17:00 Urine Glucose (UA) 50 mg/dL (Negative) 05/08/19 17:00 Urine Ketones Neg mg/dL (Negative) 05/08/19 17:00 Urine Blood Mod (Negative) 05/08/19 17:00 Urine Nitrite Neg (Negative) 05/08/19 17:00 Urine Bilirubin Neg (Negative) 05/08/19 17:00 Urine Urobilinogen < 2.0 mg/dL (<2.0) 05/08/19 17:00 Ur Leukocyte Esterase Neg (Negative) 05/08/19 17:00 Urine WBC (Auto) 3.0 /HPF (0.0-6.0) 05/08/19 17:00 Urine RBC (Auto) 19.0 /HPF (0.0-6.0) 05/08/19 17:00 U Epithel Cells (Auto) < 1.0 /HPF (0-13.0) 05/08/19 17:00 Urine Mucus Few /HPF 05/08/19 17:00 Last Vital Signs Temp 98.0 F 05/09/19 09:01 Pulse 71 05/09/19 09:12 Resp 16 05/09/19 09:01 BP 114/64 05/09/19 09:12 Pulse Ox 100 05/09/19 09:01
[2019-05-09 18:50] LABS: Amphetamine Screen,Urine PRESUMPTIVE NEGATIVE; Benzodiazepines Screen,Urine PRESUMPTIVE NEGATIVE; Cannabinoid Screen,Urine PRESUMPTIVE NEGATIVE; Cocaine Screen,Urine PRESUMPTIVE NEGATIVE; Methadone Screen,Urine PRESUMPTIVE NEGATIVE; Opiate Screen,Urine PRESUMPTIVE NEGATIVE
[2019-05-09] MEDS: LANTUS SUB-Q SCH (21:40)
[2019-05-09] MEDS: FLOMAX PO SCH (21:46)
[2019-05-09] MEDS: ENOXAPARIN SUB-Q SCH (21:46)
--- NOTE | 2019-05-10 07:10 | Progress Note ---
Subjective Date of service: 05/10/19 Principal diagnosis: Schizoaffective disorder bipolar type Subjective Comment: Patient is calm and pleasant. Pt stated that he slept well, eating well, compliant with meds and has showered and feels well today. Pt denies hallucinations and denies wanting to harm himself or others. Pt stated that he his disabled and denies any side effects from his medications. - Per nursing note, Patient slept 8+ hours through the night. PT is Compliant with medications, eating well and denies SI/HI/AVH. MSE: Orientation: time, place, person Affect: normal Mood: congruent with affect Thought content: WNL Thought Process: Intact Perceptions: none Speech: normal rate and pattern Concentration: Adequate Motor activity: normal Level of consciousness: alert Memory: Intact Interaction: calm and cooperative Objective - Criteria for Continued Treatment Criteria for Continued Treatment: Improving Level of Functioning, Stablizing Level of Functioning - Mental Status Mental Status: Oriented x 3 - Objective Observation Participation Level: Full Assessment and Plan - Patient Problems (1) Schizoaffective disorder, mixed type Current Visit: Yes Status: Acute Plan to address problem: Patient will be admitted for inpatient psychiatric evaluation, medication adjustment and close monitoring The patient's behavior, mood, sleep and appetite will be closely monitored. Patient will be enrolled in individual and group therapeutic sessions and encouraged to attend. Patient will be provided with a safe and structured environment. Patient's physical health needs will be addressed by the Hospitalist. Social Assessment will be completed and the [facility] [employer]isher will work with patient and family to ensure a suitable and safe disposition Medication adjustment will be made as clinically indicated (2) Alcohol use disorder Current Visit: Yes Status: Acute Plan to address problem: As above (3) Cocaine use disorder Current Visit: Yes Status: Acute Plan to address problem: As above Medications and Allergies Allergies Allergy/AdvReac Type Severity Reaction Status Date / Time benztropine [From Cogentin] Allergy Unknown Verified 08/10/18 16:45 haloperidol [From Haldol] Allergy Swelling Verified 08/10/18 16:45 Sulfa (Sulfonamide Allergy Unknown Verified 08/10/18 16:45 Antibiotics) Home Medications Medication Instructions Recorded Confirmed Last Taken Type Insulin Detemir [Levemir] 50 unit SQ QHS 08/12/18 08/12/18 Unknown History Insulin Glargine [Lantus] 50 unit SUB-Q QHS 08/12/18 08/12/18 Unknown History metFORMIN [Glucophage] 500 mg PO BID 08/12/18 05/09/19 Unknown History Atorvastatin (Nf) [Lipitor (Nf)] 10 mg PO QHS 05/08/19 05/08/19 Unknown History Maikel Scott 1,000 mg PO QHS 05/08/19 05/08/19 Unknown History Maryannakofariba Scott 500 mg PO QAM 05/08/19 05/08/19 1 Day Ago History ~05/07/19 500 mg Metoprolol [Lopressor] 25 mg PO BID 05/08/19 05/08/19 05/07/19 History 25 mg Tamsulosin [Flomax] 0.4 mg PO QHS 05/08/19 05/08/19 Unknown History glipiZIDE [Glucotrol] 5 mg PO QDAY 05/08/19 05/08/19 1 Day Ago History ~05/07/19 5 mg traZODone [Desyrel] 100 mg PO QHS 05/08/19 05/08/19 Unknown History Active Meds: Active Medications Atorvastatin Calcium (Lipitor) 10 mg PO QHS [facility] Last Admin: 05/09/19 21:46 Dose: 10 mg Documented by: Dextrose (D50w (25gm) Vial) 50 gm IV PRN PRN PRN Reason: Hypoglycemia Divalproex Sodium (Depakote Dr) 500 mg PO BID [facility] Last Admin: 05/09/19 21:45 Dose: 500 mg Documented by: Enoxaparin Sodium (Lovenox) 40 mg SUB-Q QDAY@2200 [facility] Last Admin: 05/09/19 21:46 Dose: 40 mg Documented by: Glipizide (Glucotrol) 5 mg PO QDAY [facility] Last Admin: 05/09/19 09:11 Dose: 5 mg Documented by: [facility]ulin [facility]) [facility] Admin: 05/09/19 21:40 Dose: 20 units Documented by: Insulin Human Lispro (Humalog) 0 unit SUB-Q [facility]; Protocol Last Admin: 05/09/19 21:45 Dose: 6 unit Documented by: Metformin HCl (Glucophage) 500 mg PO BID [facility] Last Admin: 05/09/19 21:46 Dose: 500 mg Documented by: Metoprolol Tartrate (Lopressor) 25 mg PO BID [facility] Last Admin: 05/09/19 21:46 Dose: 25 mg Documented by: Quetiapine Fumarate (Seroquel) 50 mg PO DAILY [facility] Last Admin: 05/09/19 15:09 Dose: 50 mg Documented by: Quetiapine Fumarate (Seroquel) 200 mg PO QHS [facility] Last Admin: 05/09/19 21:46 Dose: 200 mg Documented by: Tamsulosin HCl (Flomax) 0.4 mg PO QHS [facility] Last Admin: 05/09/19 21:46 Dose: 0.4 mg Documented by: Ziprasidone (Geodon) 20 mg IM Q4H PRN PRN Reason: Agitation Results - Results Labs/Vitals: Laboratory Last Values WBC 6.0 K/mm3 (4.5-11.0) 05/07/19 20:21 RBC 3.55 M/mm3 (3.65-5.03) L 05/07/19 20:21 Hgb 11.0 gm/dl (11.8-15.2) L 05/07/19 20:21 Hct 32.4 % (35.5-45.6) L 05/07/19 20:21 MCV 91 fl (84-94) 05/07/19 20:21 MCH 31 pg (28-32) 05/07/19 20:21 MCHC 34 % (32-34) 05/07/19 20:21 RDW 13.5 % (13.2-15.2) 05/07/19 20:21 Plt Count 387 K/mm3 (140-440) 05/07/19 20:21 Lymph % (Auto) 24.5 % (13.4-35.0) 05/07/19 20:21 [place] % (Auto) 7.5 % (0.0-7.3) H 05/07/19 20:21 Eos % (Auto) 3.4 % (0.0-4.3) 05/07/19 20:21 Baso % (Auto) 0.7 % (0.0-1.8) 05/07/19 20:21 Lymph # 1.5 K/mm3 (1.2-5.4) 05/07/19 20:21 [place] # 0.4 K/mm3 (0.0-0.8) 05/07/19 20:21 Eos # 0.2 K/mm3 (0.0-0.4) 05/07/19 20:21 Baso # 0.0 K/mm3 (0.0-0.1) 05/07/19 20:21 Seg Neutrophils % 63.9 % (40.0-70.0) 05/07/19 20:21 Seg Neutrophils # 3.8 K/mm3 (1.8-7.7) 05/07/19 20:21 Sodium 134 mmol/L (137-145) L 05/07/19 20:21 Potassium 4.3 mmol/L (3.6-5.0) 05/07/19 20:21 Chloride 94.3 mmol/L (98-107) L 05/07/19 20:21 Carbon Dioxide 25 mmol/L (22-30) 05/07/19 20:21 Anion Gap 19 mmol/L 05/07/19 20:21 BUN 18 mg/dL (9-20) 05/07/19 20:21 Creatinine 1.0 mg/dL (0.8-1.5) 05/07/19 20:21 Estimated GFR > 60 ml/min 05/07/19 20:21 BUN/Creatinine Ratio 18 % 05/07/19 20:21 Glucose 355 mg/dL (75-100) H 05/07/19 20:21 POC Glucose 255 (70-105) H 05/09/19 19:40 Hemoglobin A1c 7.2 % (4-6) H 05/07/19 20:21 Calcium 8.5 mg/dL (8.4-10.2) 05/07/19 20:21 Total Bilirubin 0.20 mg/dL (0.1-1.2) 05/07/19 20:21 AST 16 units/L (5-40) 05/07/19 20:21 ALT 27 units/L (7-56) 05/07/19 20:21 Alkaline Phosphatase 167 units/L (35-129) H 05/07/19 20:21 Total Protein 6.4 g/dL (6.3-8.2) 05/07/19 20:21 Albumin 3.0 g/dL (3.9-5) L 05/07/19 20:21 Albumin/Globulin Ratio 0.9 % 05/07/19 20:21 Triglycerides 171 mg/dL (2-149) H 05/07/19 20:21 Cholesterol 140 mg/dL (50-199) 05/07/19 20:21 LDL Cholesterol Direct 95 mg/dL (50-130) 05/07/19 20:21 HDL Cholesterol 21 mg/dL (40-59) L 05/07/19 20:21 Cholesterol/HDL Ratio 6.66 % 05/07/19 20:21 Urine Color Yellow (Yellow) 05/08/19 17:00 Urine Turbidity Clear (Clear) 05/08/19 17:00 Urine pH 6.0 (5.0-7.0) 05/08/19 17:00 Ur Specific [place] 1.010 (1.003-1.030) 05/08/19 17:00 Urine Protein 100 mg/dl mg/dL (Negative) 05/08/19 17:00 Urine Glucose (UA) 50 mg/dL (Negative) 05/08/19 17:00 Urine Ketones Neg mg/dL (Negative) 05/08/19 17:00 Urine Blood Mod (Negative) 05/08/19 17:00 Urine Nitrite Neg (Negative) 05/08/19 17:00 Urine Bilirubin Neg (Negative) 05/08/19 17:00 Urine Urobilinogen < 2.0 mg/dL (<2.0) 05/08/19 17:00 Ur Leukocyte Esterase Neg (Negative) 05/08/19 17:00 Urine WBC (Auto) 3.0 /HPF (0.0-6.0) 05/08/19 17:00 Urine RBC (Auto) 19.0 /HPF (0.0-6.0) 05/08/19 17:00 U Epithel Cells (Auto) < 1.0 /HPF (0-13.0) 05/08/19 17:00 Urine Mucus Few /HPF 05/08/19 17:00 Urine Opiates Screen Presumptive negative 05/09/19 Unknown Urine Methadone Screen Presumptive negative 05/09/19 Unknown Ur Barbiturates Screen Presumptive negative 05/09/19 Unknown Ur Phencyclidine Scrn Presumptive negative 05/09/19 Unknown Ur Amphetamines Screen Presumptive negative 05/09/19 Unknown U Benzodiazepines Scrn Presumptive negative 05/09/19 Unknown Urine Cocaine Screen Presumptive negative 05/09/19 Unknown U Marijuana (THC) Screen Presumptive negative 05/09/19 Unknown Drugs of Abuse Note Disclamer 05/09/19 Unknown Last Vital Signs Temp 97.5 F L 05/09/19 22:00 Pulse 76 05/09/19 22:00 Resp 18 05/09/19 22:00 BP 104/58 05/09/19 21:46 Pulse Ox 100 05/09/19 09:01
[2019-05-10] MEDS: HumaLOG SUB-Q SCH ×4 (08:13→21:55)
[2019-05-10] MEDS: GLUCOPHAGE PO SCH ×2 (10:32→21:09)
[2019-05-10] MEDS: GLUCOTROL PO SCH (10:33)
[2019-05-10] MEDS: METOPROLOL PO SCH ×2 (10:33→21:09)
[2019-05-10] MEDS: ENOXAPARIN SUB-Q SCH (21:09)
[2019-05-10] MEDS: FLOMAX PO SCH (21:09)
[2019-05-10] MEDS: LANTUS SUB-Q SCH (21:52)
[2019-05-11] MEDS: HumaLOG SUB-Q SCH ×4 (07:45→21:23)
--- NOTE | 2019-05-11 08:24 | Progress Note ---
Subjective Date of service: 05/11/19 Principal diagnosis: Schizoaffective disorder bipolar type Subjective Comment: Patient seen this morning. Pt stated that he has a house in [facility] and another place in [place]. Pt is unsure of his past meds he has taken and wants to go home to [place]. Pt states that he needs to get out of here because he has to attend court. Pt states he and his daughter will be going to court regarding a dispute over his house. Pt also feels that he needs to leave because its hindering him from making money being here in the hospital is in the way of his finances, so "I need to get back to my business". 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 Pt appears to be confused. Pt denies SI/AVH/HI. Per nurses note, Pt is doing well, eating well, pt slept well, pt is compliant, pt denies SI/HI/AVH and patient is learning to better manage his [place]. MSE: Orientation: time, place, person Affect: normal Mood: congruent with affect Thought content: WNL Thought Process: Intact Perceptions: none Speech: normal rate and pattern Concentration: Adequate Motor activity: normal Level of consciousness: alert Memory: Intact Interaction: calm and cooperative Objective - Criteria for Continued Treatment Criteria for Continued Treatment: Improving Level of Functioning, Stablizing Level of Functioning, Improving Emotional/Socia - Objective Observation Participation Level: Moderate Assessment and Plan - Patient Problems (1) Schizoaffective disorder, mixed type Current Visit: Yes Status: Acute Plan to address problem: Patient will be admitted for inpatient psychiatric evaluation, medication adjustment and close monitoring The patient's behavior, mood, sleep and appetite will be closely monitored. Patient will be enrolled in individual and group therapeutic sessions and encouraged to attend. Patient will be provided with a safe and structured environment. Patient's physical health needs will be addressed by the Hospitalist. Social Assessment will be completed and the Windsmith will work with patient and family to ensure a suitable and safe disposition Medication adjustment will be made as clinically indicated (2) Alcohol use disorder Current Visit: Yes Status: Acute Plan to address problem: As above (3) Cocaine use disorder Current Visit: Yes Status: Acute Plan to address problem: As above Medications and Allergies Allergies Allergy/AdvReac Type Severity Reaction Status Date / Time benztropine [From Cogentin] Allergy Unknown Verified 08/10/18 16:45 haloperidol [From Haldol] Allergy Swelling Verified 08/10/18 16:45 Sulfa (Sulfonamide Allergy Unknown Verified 08/10/18 16:45 Antibiotics) Home Medications Medication Instructions Recorded Confirmed Last Taken Type Insulin Detemir [Levemir] 50 unit SQ QHS 08/12/18 08/12/18 Unknown History Insulin Glargine [Lantus] 50 unit SUB-Q QHS 08/12/18 08/12/18 Unknown History metFORMIN [Glucophage] 500 mg PO BID 08/12/18 05/09/19 Unknown History Atorvastatin (Nf) [Lipitor (Nf)] 10 mg PO QHS 05/08/19 05/08/[address] 1,000 mg PO QHS 05/08/19 05/08/[address] 500 mg PO [facility] 05/08/19 05/08/19 1 Day Ago History ~05/07/19 500 mg Metoprolol [Lopressor] 25 mg PO BID 05/08/19 05/08/19 05/07/19 History 25 mg Tamsulosin [Flomax] 0.4 mg PO QHS 05/08/19 05/08/19 Unknown History glipiZIDE [Glucotrol] 5 mg PO QDAY 05/08/19 05/08/19 1 Day Ago History ~05/07/19 5 mg traZODone [Desyrel] 100 mg PO QHS 05/08/19 05/08/19 Unknown History Active Meds: Active Medications Atorvastatin Calcium (Lipitor) 10 mg PO QHS [facility] Last Admin: 05/10/19 21:09 Dose: 10 mg Documented by: Dextrose (D50w (25gm) Vial) 50 gm IV PRN PRN PRN Reason: Hypoglycemia Divalproex Sodium (Depakote Dr) 500 mg PO BID [facility] Last Admin: 05/10/19 21:08 Dose: 500 mg Documented by: Enoxaparin Sodium (Lovenox) 40 mg SUB-Q QDAY@2200 [facility] Last Admin: 05/10/19 21:09 Dose: 40 mg Documented by: Glipizide (Glucotrol) 5 mg PO QDAY [facility] Last Admin: 05/10/19 10:33 Dose: 5 mg Documented by: Insulin Glargine (Lantus) 20 units SUB-Q QHS [facility] Last Admin: 05/10/19 21:52 Dose: 20 units Documented by: Insulin Human Lispro (Humalog) 0 unit SUB-Q [facility]; Protocol Last Admin: 05/11/19 07:45 Dose: Not Given Documented by: Metformin HCl (Glucophage) 500 mg PO BID [facility] Last Admin: 05/10/19 21:09 Dose: 500 mg Documented by: Metoprolol Tartrate (Lopressor) 25 mg PO BID [facility] Last Admin: 05/10/19 21:09 Dose: 25 mg Documented by: Quetiapine Fumarate (Seroquel) 50 mg PO DAILY [facility] Last Admin: 05/10/19 10:33 Dose: 50 mg Documented by: Quetiapine Fumarate (Seroquel) 200 mg PO QHS [facility] Last Admin: 05/10/19 21:09 Dose: 200 mg Documented by: [facility] Last Admin: 05/10/19 21:09 Dose: 0.4 mg Documented by: Ziprasidone (Geodon) 20 mg IM Q4H PRN PRN Reason: Agitation Results - Results Labs/Vitals: Laboratory Last Values WBC 6.0 K/mm3 (4.5-11.0) 05/07/19 20: RBC 3.55 M/mm3 (3.65-5.03) L 05/07/19 20:21 Hgb 11.0 gm/dl (11.8-15.2) L 05/07/19 20: Hct 32.4 % (35.5-45.6) L 05/07/19 20:21 MCV 91 fl (84-94) 05/07/19 20:21 MCH 31 pg (28-32) 05/07/19 20: MCHC 34 % (32-34) 05/07/19 20:21 RDW 13.5 % (13.2-15.2) 05/07/19 20:21 Plt Count 387 K/mm3 (140-440) 05/07/19 20:21 Lymph % (Auto) 24.5 % (13.4-35.0) 05/07/19 20:21 [place] % (Auto) 7.5 % (0.0-7.3) H 05/07/19 20:21 Eos % (Auto) 3.4 % (0.0-4.3) 05/07/19 20:21 Baso % (Auto) 0.7 % (0.0-1.8) 05/07/19 20:21 Lymph # 1.5 K/mm3 (1.2-5.4) 05/07/19 20:21 [place] # 0.4 K/mm3 (0.0-0.8) 05/07/19 20:21 Eos # 0.2 K/mm3 (0.0-0.4) 05/07/19 20:21 Baso # 0.0 K/mm3 (0.0-0.1) 05/07/19 20:21 Seg Neutrophils % 63.9 % (40.0-70.0) 05/07/19 20:21 Seg Neutrophils # 3.8 K/mm3 (1.8-7.7) 05/07/19 20:21 Sodium 134 mmol/L (137-145) L 05/07/19 20:21 Potassium 4.3 mmol/L (3.6-5.0) 05/07/19 20:21 Chloride 94.3 mmol/L (98-107) L 05/07/19 20:21 Carbon Dioxide 25 mmol/L (22-30) 05/07/19 20:21 Anion Gap 19 mmol/L 05/07/19 20:21 BUN 18 mg/dL (9-20) 05/07/19 20:21 Creatinine 1.0 mg/dL (0.8-1.5) 05/07/19 20:21 Estimated GFR > 60 ml/min 05/07/19 20:21 BUN/Creatinine Ratio 18 % 05/07/19 20:21 Glucose 355 mg/dL (75-100) H 05/07/19 20:21 POC Glucose 147 (70-105) H 05/11/19 06:43 Hemoglobin A1c 7.2 % (4-6) H 05/07/19 20:21 Calcium 8.5 mg/dL (8.4-10.2) 05/07/19 20:21 Total Bilirubin 0.20 mg/dL (0.1-1.2) 05/07/19 20:21 AST 16 units/L (5-40) 05/07/19 20:21 ALT 27 units/L (7-56) 05/07/19 20:21 Alkaline Phosphatase 167 units/L (35-129) H 05/07/19 20:21 Total Protein 6.4 g/dL (6.3-8.2) 05/07/19 20:21 Albumin 3.0 g/dL (3.9-5) L 05/07/19 20:21 Albumin/Globulin Ratio 0.9 % 05/07/19 20:21 Triglycerides 171 mg/dL (2-149) H 05/07/19 20:21 Cholesterol 140 mg/dL (50-199) 05/07/19 20:21 LDL Cholesterol Direct 95 mg/dL (50-130) 05/07/19 20:21 HDL Cholesterol 21 mg/dL (40-59) L 05/07/19 20:21 Cholesterol/HDL Ratio 6.66 % 05/07/19 20:21 Urine Color Yellow (Yellow) 05/08/19 17:00 Urine Turbidity Clear (Clear) 05/08/19 17:00 Urine pH 6.0 (5.0-7.0) 05/08/19 17:00 Ur Specific [place] 1.010 (1.003-1.030) 05/08/19 17:00 Urine Protein 100 mg/dl mg/dL (Negative) 05/08/19 17:00 Urine Glucose (UA) 50 mg/dL (Negative) 05/08/19 17:00 Urine Ketones Neg mg/dL (Negative) 05/08/19 17:00 Urine Blood Mod (Negative) 05/08/19 17:00 Urine Nitrite Neg (Negative) 05/08/19 17:00 Urine Bilirubin Neg (Negative) 05/08/19 17:00 Urine Urobilinogen < 2.0 mg/dL (<2.0) 05/08/19 17:00 Ur Leukocyte Esterase Neg (Negative) 05/08/19 17:00 Urine WBC (Auto) 3.0 /HPF (0.0-6.0) 05/08/19 17:00 Urine RBC (Auto) 19.0 /HPF (0.0-6.0) 05/08/19 17:00 U Epithel Cells (Auto) < 1.0 /HPF (0-13.0) 05/08/19 17:00 Urine Mucus Few /HPF 05/08/19 17:00 Urine Opiates Screen Presumptive negative 05/09/19 Unknown Urine Methadone Screen Presumptive negative 05/09/19 Unknown Ur Barbiturates Screen Presumptive negative 05/09/19 Unknown Ur Phencyclidine Scrn Presumptive negative 05/09/19 Unknown Ur Amphetamines Screen Presumptive negative 05/09/19 Unknown U Benzodiazepines Scrn Presumptive negative 05/09/19 Unknown Urine Cocaine Screen Presumptive negative 05/09/19 Unknown U Marijuana (THC) Screen Presumptive negative 05/09/19 Unknown Drugs of Abuse Note Disclamer 05/09/19 Unknown Last Vital Signs Temp 97.9 F 05/10/19 19:35 Pulse 66 05/10/19 21:09 Resp 20 05/10/19 19:35 BP 117/70 05/10/19 21:09 Pulse Ox 98 05/10/19 19:35
[2019-05-11] MEDS: GLUCOPHAGE PO SCH ×2 (10:48→21:25)
[2019-05-11] MEDS: GLUCOTROL PO SCH (10:49)
[2019-05-11] MEDS: METOPROLOL PO SCH ×2 (10:51→21:25)
[2019-05-11] MEDS: LANTUS SUB-Q SCH (21:10)
[2019-05-11] MEDS: ENOXAPARIN SUB-Q SCH (21:24)
[2019-05-11] MEDS: FLOMAX PO SCH (21:25)
--- NOTE | 2019-05-12 07:33 | Progress Note ---
Subjective Date of service: 05/12/19 Principal diagnosis: Schizoaffective disorder bipolar type Subjective Comment: Patient reports good mood. He denies SI/AVH/HI. Per nurses notes, Pt is alert and oriented x4, calm and cooperative, pt is eating well, pt is medication compliant, self care, mendez remain intact, no linkage; pt denies SI/AVH/HI. MSE: Orientation: time, place, person Affect: normal Mood: congruent with affect Thought content: WNL Thought Process: Intact Perceptions: none Speech: normal rate and pattern Concentration: Adequate Motor activity: normal Level of consciousness: alert Memory: Intact Interaction: calm and cooperative Objective - Criteria for Continued Treatment Criteria for Continued Treatment: Stablizing Level of Functioning - Objective Observation Participation Level: Moderate Assessment and Plan - Patient Problems (1) Schizoaffective disorder, mixed type Current Visit: Yes Status: Acute Plan to address problem: Patient will be admitted for inpatient psychiatric evaluation, medication adjustment and close monitoring The patient's behavior, mood, sleep and appetite will be closely monitored. Patient will be enrolled in individual and group therapeutic sessions and encouraged to attend. Patient will be provided with a safe and structured environment. Patient's physical health needs will be addressed by the Hospitalist. Social Assessment will be completed and the Cardroom Worker will work with patient and family to ensure a suitable and safe disposition Medication adjustment will be made as clinically indicated (2) Alcohol use disorder Current Visit: Yes Status: Acute Plan to address problem: As above (3) Cocaine use disorder Current Visit: Yes Status: Acute Plan to address problem: As above Medications and Allergies Allergies Allergy/AdvReac Type Severity Reaction Status Date / Time benztropine [From Cogentin] Allergy Unknown Verified 08/10/18 16:45 haloperidol [From Haldol] Allergy Swelling Verified 08/10/18 16:45 Sulfa (Sulfonamide Allergy Unknown Verified 08/10/18 16:45 Antibiotics) Home Medications Medication Instructions Recorded Confirmed Last Taken Type Insulin Detemir [Levemir VIAL] 50 unit SQ QHS 08/12/18 08/12/18 Unknown History Insulin Glargine [Lantus VIAL] 50 unit SUB-Q QHS 08/12/18 08/12/18 Unknown History metFORMIN [Glucophage] 500 mg PO BID 08/12/18 05/09/19 Unknown History Atorvastatin (Nf) [Lipitor] 10 mg PO QHS 05/08/19 05/08/19 Unknown History Metoprolol [Lopressor TAB] 25 mg PO BID 05/08/19 05/08/19 05/07/19 History 25 mg Tamsulosin [Flomax] 0.4 mg PO QHS 05/08/19 05/08/19 Unknown History glipiZIDE [Glucotrol] 5 mg PO QDAY 05/08/19 05/08/19 1 Day Ago History ~05/07/19 5 mg traZODone [Desyrel] 100 mg PO QHS 05/08/19 05/08/[address] 1,000 mg PO QHS #30 05/12/[address] 500 mg PO QA #30 05/12/19 Unknown Rx QUEtiapine [SEROquel] 50 mg PO BIDBL #120 tablet 05/12/19 Unknown Rx QUEtiapine [SEROquel] 300 mg PO QHS #60 tablet 05/12/19 Unknown Rx Active Meds: Active Medications [facility] Admin: 05/11/19 21:25 Dose: 10 mg Documented by: Dextrose (D50w (25gm) Vial) 50 gm IV PRN PRN PRN Reason: Hypoglycemia Divalproex Sodium (Depakote Dr) 500 mg PO BID [facility] Last Admin: 05/11/19 21:25 Dose: 500 mg Documented by: Enoxaparin Sodium (Lovenox) 40 mg SUB-Q QDAY@2200 [facility] Last Admin: 05/11/19 21:24 Dose: 40 mg Documented by: Glipizide (Glucotrol) 5 mg PO QDAY [facility] Last Admin: 05/11/19 10:49 Dose: 5 mg Documented by: Insulin [facility]argine (Lantus) [facility] Last Admin: 05/11/19 21:10 Dose: 20 units Documented by: Insulin Human Lispro (Humalog) 0 unit SUB-Q [facility]; Protocol Last Admin: 05/11/19 21:23 Dose: 6 unit Documented by: Metformin HCl (Glucophage) 500 mg PO BID [facility] Last Admin: 05/11/19 21:25 Dose: 500 mg Documented by: Metoprolol Tartrate (Lopressor) 25 mg PO BID [facility] Last Admin: 05/11/19 21:25 Dose: 25 mg Documented by: Quetiapine Fumarate (Seroquel) 300 mg PO QHS [facility] Last Admin: 05/11/19 21:25 Dose: 300 mg Documented by: Quetiapine Fumarate (Seroquel) 50 mg PO BIDBL [facility] Last Admin: 05/11/19 12:30 Dose: 50 mg Documented by: Tamsulosin HCl (Flomax) 0.4 mg PO QHS [facility] Last Admin: 05/11/19 21:25 Dose: 0.4 mg Documented by: Ziprasidone (Geodon) 20 mg IM Q4H PRN PRN Reason: Agitation Results - Results Labs/Vitals: Laboratory Last Values WBC 6.0 K/mm3 (4.5-11.0) 05/07/19 20:21 RBC 3.55 M/mm3 (3.65-5.03) L 05/07/19 20:21 Hgb 11.0 gm/dl (11.8-15.2) L 05/07/19 20:21 Hct 32.4 % (35.5-45.6) L 05/07/19 20:21 MCV 91 fl (84-94) 05/07/19 20:21 MCH 31 pg (28-32) 05/07/19 20:21 MCHC 34 % (32-34) 05/07/19 20:21 RDW 13.5 % (13.2-15.2) 05/07/19 20:21 Plt Count 387 K/mm3 (140-440) 05/07/19 20:21 Lymph % (Auto) 24.5 % (13.4-35.0) 05/07/19 20:21 [place] % (Auto) 7.5 % (0.0-7.3) H 05/07/19 20:21 Eos % (Auto) 3.4 % (0.0-4.3) 05/07/19 20:21 Baso % (Auto) 0.7 % (0.0-1.8) 05/07/19 20:21 Lymph # 1.5 K/mm3 (1.2-5.4) 05/07/19 20:21 [place] # 0.4 K/mm3 (0.0-0.8) 05/07/19 20:21 Eos # 0.2 K/mm3 (0.0-0.4) 05/07/19 20:21 Baso # 0.0 K/mm3 (0.0-0.1) 05/07/19 20:21 Seg Neutrophils % 63.9 % (40.0-70.0) 05/07/19 20:21 Seg Neutrophils # 3.8 K/mm3 (1.8-7.7) 05/07/19 20:21 Sodium 134 mmol/L (137-145) L 05/07/19 20:21 Potassium 4.3 mmol/L (3.6-5.0) 05/07/19 20:21 Chloride 94.3 mmol/L (98-107) L 05/07/19 20:21 Carbon Dioxide 25 mmol/L (22-30) 05/07/19 20:21 Anion Gap 19 mmol/L 05/07/19 20:21 BUN 18 mg/dL (9-20) 05/07/19 20:21 Creatinine 1.0 mg/dL (0.8-1.5) 05/07/19 20:21 Estimated GFR > 60 ml/min 05/07/19 20:21 BUN/Creatinine Ratio 18 % 05/07/19 20:21 Glucose 355 mg/dL (75-100) H 05/07/19 20:21 POC Glucose 148 (70-105) H 05/12/19 06:40 Hemoglobin A1c 7.2 % (4-6) H 05/07/19 20:21 Calcium 8.5 mg/dL (8.4-10.2) 05/07/19 20:21 Total Bilirubin 0.20 mg/dL (0.1-1.2) 05/07/19 20:21 AST 16 units/L (5-40) 05/07/19 20:21 ALT 27 units/L (7-56) 05/07/19 20:21 Alkaline Phosphatase 167 units/L (35-129) H 05/07/19 20:21 Total Protein 6.4 g/dL (6.3-8.2) 05/07/19 20:21 Albumin 3.0 g/dL (3.9-5) L 05/07/19 20:21 Albumin/Globulin Ratio 0.9 % 05/07/19 20:21 Triglycerides 171 mg/dL (2-149) H 05/07/19 20:21 Cholesterol 140 mg/dL (50-199) 05/07/19 20:21 LDL Cholesterol Direct 95 mg/dL (50-130) 05/07/19 20:21 HDL Cholesterol 21 mg/dL (40-59) L 05/07/19 20:21 Cholesterol/HDL Ratio 6.66 % 05/07/19 20:21 Urine Color Yellow (Yellow) 05/08/19 17:00 Urine Turbidity Clear (Clear) 05/08/19 17:00 Urine pH 6.0 (5.0-7.0) 05/08/19 17:00 Ur Specific [place] 1.010 (1.003-1.030) 05/08/19 17:00 Urine Protein 100 mg/dl mg/dL (Negative) 05/08/19 17:00 Urine Glucose (UA) 50 mg/dL (Negative) 05/08/19 17:00 Urine Ketones Neg mg/dL (Negative) 05/08/19 17:00 Urine Blood Mod (Negative) 05/08/19 17:00 Urine Nitrite Neg (Negative) 05/08/19 17:00 Urine Bilirubin Neg (Negative) 05/08/19 17:00 Urine Urobilinogen < 2.0 mg/dL (<2.0) 05/08/19 17:00 Ur Leukocyte Esterase Neg (Negative) 05/08/19 17:00 Urine WBC (Auto) 3.0 /HPF (0.0-6.0) 05/08/19 17:00 Urine RBC (Auto) 19.0 /HPF (0.0-6.0) 05/08/19 17:00 U Epithel Cells (Auto) < 1.0 /HPF (0-13.0) 05/08/19 17:00 Urine Mucus Few /HPF 05/08/19 17:00 Urine Opiates Screen Presumptive negative 05/09/19 Unknown Urine Methadone Screen Presumptive negative 05/09/19 Unknown Ur Barbiturates Screen Presumptive negative 05/09/19 Unknown Ur Phencyclidine Scrn Presumptive negative 05/09/19 Unknown Ur Amphetamines Screen Presumptive negative 05/09/19 Unknown U Benzodiazepines Scrn Presumptive negative 05/09/19 Unknown Urine Cocaine Screen Presumptive negative 05/09/19 Unknown U Marijuana (THC) Screen Presumptive negative 05/09/19 Unknown Drugs of Abuse Note Disclamer 05/09/19 Unknown Last Vital Signs Temp 98.5 F 05/11/19 22:00 Pulse 63 05/11/19 22:00 Resp 18 05/11/19 22:00 BP 120/67 05/11/19 22:00 Pulse Ox 98 05/11/19 22:00
[2019-05-12] MEDS: HumaLOG SUB-Q SCH ×4 (07:35→21:43)
[2019-05-12] MEDS: GLUCOPHAGE PO SCH ×2 (10:40→21:42)
[2019-05-12] MEDS: GLUCOTROL PO SCH (10:40)
[2019-05-12] MEDS: METOPROLOL PO SCH ×2 (10:42→21:42)
[2019-05-12] MEDS: LANTUS SUB-Q SCH (21:12)
[2019-05-12] MEDS: FLOMAX PO SCH (21:43)
[2019-05-12] MEDS: ENOXAPARIN SUB-Q SCH (21:43)
[2019-05-13] MEDS: HumaLOG SUB-Q SCH (08:00)
--- NOTE | 2019-05-13 08:06 | Progress Note ---
Subjective Date of service: 05/13/19 Principal diagnosis: Schizoaffective disorder bipolar type Subjective Comment: Patient reports good mood. He denies SI/AVH/HI. Per nurses notes, Pt is alert and oriented x4, calm and cooperative, pt is eating well, pt is medication compliant, self care, mendez remain intact, no linkage; pt denies SI/AVH/HI. Per nurses note, pt is a/o x 4 mood and affect is appropriate. Pt is able to verbalize needs, answer questions appropriately. He is compliant with routine meds and required no prns. Appetite good and no complaints of pain. Pt slept for 7hrs throughout the night. Pt verbalizes no SI/HI, mendez catheter patent, pt continues to manage effectively. Pt preoccupied with discharge, no behavior issues. MSE: Orientation: time, place, person Affect: normal Mood: congruent with affect Thought content: WNL Thought Process: Intact Perceptions: none Speech: normal rate and pattern Concentration: Adequate Motor activity: normal Level of consciousness: alert Memory: Intact Interaction: calm and cooperative Assessment and Plan - Patient Problems (1) Schizoaffective disorder, mixed type Current Visit: Yes Status: Acute (2) Alcohol use disorder Current Visit: Yes Status: Acute (3) Cocaine use disorder Current Visit: Yes Status: Acute Medications and Allergies Allergies Allergy/AdvReac Type Severity Reaction Status Date / Time benztropine [From Cogentin] Allergy Unknown Verified 08/10/18 16:45 haloperidol [From Haldol] Allergy Swelling Verified 08/10/18 16:45 Sulfa (Sulfonamide Allergy Unknown Verified 08/10/18 16:45 Antibiotics) Home Medications Medication Instructions Recorded Confirmed Last Taken Type Insulin Detemir [Levemir VIAL] 50 unit SQ QHS 08/12/18 08/12/18 Unknown History Insulin Glargine [Lantus VIAL] 50 unit SUB-Q QHS 08/12/18 08/12/18 Unknown History metFORMIN [Glucophage] 500 mg PO BID 08/12/18 05/09/19 Unknown History Atorvastatin (Nf) [Lipitor] 10 mg PO QHS 05/08/19 05/08/19 Unknown History Metoprolol [Lopressor TAB] 25 mg PO BID 05/08/19 05/08/19 05/07/19 History 25 mg Tamsulosin [Flomax] 0.4 mg PO QHS 05/08/19 05/08/19 Unknown History glipiZIDE [Glucotrol] 5 mg PO QDAY 05/08/19 05/08/19 1 Day Ago History ~05/07/19 5 mg traZODone [Desyrel] 100 mg PO QHS 05/08/19 05/08/[address] 1,000 mg PO QHS #30 05/12/[address] 500 mg PO QAM #30 05/12/19 Unknown Rx QUEtiapine [SEROquel] 50 mg PO BIDBL #120 tablet 05/12/19 Unknown Rx QUEtiapine [SEROquel] 300 mg PO QHS #60 tablet 05/12/19 Unknown Rx Active Meds: Active Medications [facility]: 05/12/19 21:42 Dose: 10 mg Documented by: Dextrose (D50w (25gm) Vial) 50 gm IV PRN PRN PRN Reason: Hypoglycemia Divalproex Sodium (Depakote Dr) 500 mg PO BID [facility] Last Admin: 05/12/19 21:42 Dose: 500 mg Documented by: Enoxaparin Sodium (Lovenox) 40 mg SUB-Q QDAY@2200 [facility] Last Admin: 05/12/19 21:43 Dose: 40 mg Documented by: Glipizide (Glucotrol) 5 mg PO QDAY [facility] Last Admin: 05/12/19 10:40 Dose: 5 mg Documented by: Insulin [facility] ([facility]us) [facility] Last Admin: 05/12/19 21:12 Dose: 20 units Documented by: Insulin Human Lispro (Humalog) 0 unit SUB-Q [facility]; Protocol Last Admin: 05/13/19 08:00 Dose: 3 unit Documented by: Metformin HCl (Glucophage) 500 mg PO BID [facility] Last Admin: 05/12/19 21:42 Dose: 500 mg Documented by: Metoprolol Tartrate (Lopressor) 25 mg PO BID [facility] Last Admin: 05/12/19 21:42 Dose: 25 mg Documented by: [facility]apine [facility]quel) [facility] Last Admin: 05/12/19 21:42 Dose: 300 mg Documented by: Quetiapine Fumarate (Seroquel) 50 mg PO 1000,1700 [facility] Last Admin: 05/12/19 17:40 Dose: 50 mg Documented by: Tamsulosin HCl (Flomax) 0.4 mg PO QHS [facility] Last Admin: 05/12/19 21:43 Dose: 0.4 mg Documented by: Ziprasidone (Geodon) 20 mg IM Q4H PRN PRN Reason: Agitation Results - Results Labs/Vitals: Laboratory Last Values WBC 6.0 K/mm3 (4.5-11.0) 05/07/19 20:21 RBC 3.55 M/mm3 (3.65-5.03) L 05/07/19 20:21 Hgb 11.0 gm/dl (11.8-15.2) L 05/07/19 20:21 Hct 32.4 % (35.5-45.6) L 05/07/19 20:21 MCV 91 fl (84-94) 05/07/19 20:21 MCH 31 pg (28-32) 05/07/19 20:21 MCHC 34 % (32-34) 05/07/19 20:21 RDW 13.5 % (13.2-15.2) 05/07/19 20:21 Plt Count 387 K/mm3 (140-440) 05/07/19 20:21 Lymph % (Auto) 24.5 % (13.4-35.0) 05/07/19 20:21 [place] % (Auto) 7.5 % (0.0-7.3) H 05/07/19 20:21 Eos % (Auto) 3.4 % (0.0-4.3) 05/07/19 20:21 Baso % (Auto) 0.7 % (0.0-1.8) 05/07/19 20:21 Lymph # 1.5 K/mm3 (1.2-5.4) 05/07/19 20:21 [place] # 0.4 K/mm3 (0.0-0.8) 05/07/19 20:21 Eos # 0.2 K/mm3 (0.0-0.4) 05/07/19 20:21 Baso # 0.0 K/mm3 (0.0-0.1) 05/07/19 20:21 Seg Neutrophils % 63.9 % (40.0-70.0) 05/07/19 20:21 Seg Neutrophils # 3.8 K/mm3 (1.8-7.7) 05/07/19 20:21 Sodium 134 mmol/L (137-145) L 05/07/19 20:21 Potassium 4.3 mmol/L (3.6-5.0) 05/07/19 20:21 Chloride 94.3 mmol/L (98-107) L 05/07/19 20:21 Carbon Dioxide 25 mmol/L (22-30) 05/07/19 20:21 Anion Gap 19 mmol/L 05/07/19 20:21 BUN 18 mg/dL (9-20) 05/07/19 20:21 Creatinine 1.0 mg/dL (0.8-1.5) 05/07/19 20:21 Estimated GFR > 60 ml/min 05/07/19 20:21 BUN/Creatinine Ratio 18 % 05/07/19 20:21 Glucose 355 mg/dL (75-100) H 05/07/19 20:21 POC Glucose 171 (70-105) H 05/13/19 07:55 Hemoglobin A1c 7.2 % (4-6) H 05/07/19 20:21 Calcium 8.5 mg/dL (8.4-10.2) 05/07/19 20:21 Total Bilirubin 0.20 mg/dL (0.1-1.2) 05/07/19 20:21 AST 16 units/L (5-40) 05/07/19 20:21 ALT 27 units/L (7-56) 05/07/19 20:21 Alkaline Phosphatase 167 units/L (35-129) H 05/07/19 20:21 Total Protein 6.4 g/dL (6.3-8.2) 05/07/19 20:21 Albumin 3.0 g/dL (3.9-5) L 05/07/19 20:21 Albumin/Globulin Ratio 0.9 % 05/07/19 20:21 Triglycerides 171 mg/dL (2-149) H 05/07/19 20:21 Cholesterol 140 mg/dL (50-199) 05/07/19 20:21 LDL Cholesterol Direct 95 mg/dL (50-130) 05/07/19 20:21 HDL Cholesterol 21 mg/dL (40-59) L 05/07/19 20:21 Cholesterol/HDL Ratio 6.66 % 05/07/19 20:21 Urine Color Yellow (Yellow) 05/08/19 17:00 Urine Turbidity Clear (Clear) 05/08/19 17:00 Urine pH 6.0 (5.0-7.0) 05/08/19 17:00 Ur Specific [place] 1.010 (1.003-1.030) 05/08/19 17:00 Urine Protein 100 mg/dl mg/dL (Negative) 05/08/19 17:00 Urine Glucose (UA) 50 mg/dL (Negative) 05/08/19 17:00 Urine Ketones Neg mg/dL (Negative) 05/08/19 17:00 Urine Blood Mod (Negative) 05/08/19 17:00 Urine Nitrite Neg (Negative) 05/08/19 17:00 Urine Bilirubin Neg (Negative) 05/08/19 17:00 Urine Urobilinogen < 2.0 mg/dL (<2.0) 05/08/19 17:00 Ur Leukocyte Esterase Neg (Negative) 05/08/19 17:00 Urine WBC (Auto) 3.0 /HPF (0.0-6.0) 05/08/19 17:00 Urine RBC (Auto) 19.0 /HPF (0.0-6.0) 05/08/19 17:00 U Epithel Cells (Auto) < 1.0 /HPF (0-13.0) 05/08/19 17:00 Urine Mucus Few /HPF 05/08/19 17:00 Urine Opiates Screen Presumptive negative 05/09/19 Unknown Urine Methadone Screen Presumptive negative 05/09/19 Unknown Ur Barbiturates Screen Presumptive negative 05/09/19 Unknown Ur Phencyclidine Scrn Presumptive negative 05/09/19 Unknown Ur Amphetamines Screen Presumptive negative 05/09/19 Unknown U Benzodiazepines Scrn Presumptive negative 05/09/19 Unknown Urine Cocaine Screen Presumptive negative 05/09/19 Unknown U Marijuana (THC) Screen Presumptive negative 05/09/19 Unknown Drugs of Abuse Note Disclamer 05/09/19 Unknown Last Vital Signs Temp 97.8 F 05/12/19 20:29 Pulse 59 L 05/12/19 21:42 Resp 18 05/12/19 20:29 BP 136/71 05/12/19 21:42 Pulse Ox 99 10/23/19 20:29
[2019-05-13 09:40] VITALS: BP 114/64
[2019-05-13] MEDS: METOPROLOL PO SCH (09:41)
[2019-05-13] MEDS: GLUCOTROL PO SCH (09:41)
[2019-05-13] MEDS: GLUCOPHAGE PO SCH (09:42)
--- NOTE | 2019-05-13 10:08 | Discharge Summary ---
Providers - Providers Date of Admission: 05/07/19 19:39 Date of discharge: 05/13/19 Attending physician: REN COOPER MD 05/08/19 08:37 Consult to Physician [CONS] Routine Comment: Consulting Provider: RICH PETERSEN Physician Instructions: Reason For Exam: H&P Primary care physician: DEMURRAGE CLERK Hospitalization Reason for admission: Threatened to shoot himself. Admitting Diagnosis: F31.2 - BIPOLAR DISORD, CRNT EPISODE MANIC SEVERE W PSYCH FEATURES Condition: Stable Hospital course: The patient was provided inpatient psychiatric treatment with safe and supportive environment, group therapy, individual counseling, psychiatric medication, medication adjustment, adverse effect monitor, medical evaluation, medical treatment, social service assessment, family/social support meeting, placement assessment and psycho-education. The patients mood, anxiety, thoughts, stress management skill, cognition, impulse/anger control, motivation, understanding of disease, compliance to treatment and appreciation on family/social support are improved and stabilized. At the time of discharge, the patient had no suicidal ideas, no homicidal ideas, no aggressive thoughts, no endangering behavior and no debilitating adverse effects. Disposition: DC- TO HOME OR SELFCARE Allergies/Adverse Reactions: Allergies benztropine [From Cogentin] Allergy (Verified 08/10/18 16:45) Unknown haloperidol [From Haldol] Allergy (Verified 08/10/18 16:45) Swelling Sulfa (Sulfonamide Antibiotics) Allergy (Verified 08/10/18 16:45) Unknown Vital Signs: Last Vital Signs Temp 97.8 F 05/12/19 20:29 Pulse 62 05/13/19 09:41 Resp 18 05/12/19 20:29 BP 114/64 05/13/19 09:41 Pulse Ox 97 05/13/19 09:28 Last Lab: Laboratory Last Values WBC 6.0 K/mm3 (4.5-11.0) 05/07/19 20:21 RBC 3.55 M/mm3 (3.65-5.03) L 05/07/19 20:21 Hgb 11.0 gm/dl (11.8-15.2) L 05/07/19 20:21 Hct 32.4 % (35.5-45.6) L 05/07/19 20:21 MCV 91 fl (84-94) 05/07/19 20:21 MCH 31 pg (28-32) 05/07/19 20:21 MCHC 34 % (32-34) 05/07/19 20:21 RDW 13.5 % (13.2-15.2) 05/07/19 20:21 Plt Count 387 K/mm3 (140-440) 05/07/19 20:21 Lymph % (Auto) 24.5 % (13.4-35.0) 05/07/19 20:21 [place] % (Auto) 7.5 % (0.0-7.3) H 05/07/19 20:21 Eos % (Auto) 3.4 % (0.0-4.3) 05/07/19 20:21 Baso % (Auto) 0.7 % (0.0-1.8) 05/07/19 20:21 Lymph # 1.5 K/mm3 (1.2-5.4) 05/07/19 20:21 [place] # 0.4 K/mm3 (0.0-0.8) 05/07/19 20:21 Eos # 0.2 K/mm3 (0.0-0.4) 05/07/19 20:21 Baso # 0.0 K/mm3 (0.0-0.1) 05/07/19 20:21 Seg Neutrophils % 63.9 % (40.0-70.0) 05/07/19 20:21 Seg Neutrophils # 3.8 K/mm3 (1.8-7.7) 05/07/19 20:21 Sodium 134 mmol/L (137-145) L 05/07/19 20:21 Potassium 4.3 mmol/L (3.6-5.0) 05/07/19 20:21 Chloride 94.3 mmol/L (98-107) L 05/07/19 20:21 Carbon Dioxide 25 mmol/L (22-30) 05/07/19 20:21 Anion Gap 19 mmol/L 05/07/19 20:21 BUN 18 mg/dL (9-20) 05/07/19 20:21 Creatinine 1.0 mg/dL (0.8-1.5) 05/07/19 20:21 Estimated GFR > 60 ml/min 05/07/19 20:21 BUN/Creatinine Ratio 18 % 05/07/19 20:21 Glucose 355 mg/dL (75-100) H 05/07/19 20:21 POC Glucose 171 (70-105) H 05/13/19 07:55 Hemoglobin A1c 7.2 % (4-6) H 05/07/19 20:21 Calcium 8.5 mg/dL (8.4-10.2) 05/07/19 20:21 Total Bilirubin 0.20 mg/dL (0.1-1.2) 05/07/19 20:21 AST 16 units/L (5-40) 05/07/19 20:21 ALT 27 units/L (7-56) 05/07/19 20:21 Alkaline Phosphatase 167 units/L (35-129) H 05/07/19 20:21 Total Protein 6.4 g/dL (6.3-8.2) 05/07/19 20:21 Albumin 3.0 g/dL (3.9-5) L 05/07/19 20:21 Albumin/Globulin Ratio 0.9 % 05/07/19 20:21 Triglycerides 171 mg/dL (2-149) H 05/07/19 20:21 Cholesterol 140 mg/dL (50-199) 05/07/19 20:21 LDL Cholesterol Direct 95 mg/dL (50-130) 05/07/19 20:21 HDL Cholesterol 21 mg/dL (40-59) L 05/07/19 20:21 Cholesterol/HDL Ratio 6.66 % 05/07/19 20:21 Urine Color Yellow (Yellow) 05/08/19 17:00 Urine Turbidity Clear (Clear) 05/08/19 17:00 Urine pH 6.0 (5.0-7.0) 05/08/19 17:00 Ur Specific [place] 1.010 (1.003-1.030) 05/08/19 17:00 Urine Protein 100 mg/dl mg/dL (Negative) 05/08/19 17:00 Urine Glucose (UA) 50 mg/dL (Negative) 05/08/19 17:00 Urine Ketones Neg mg/dL (Negative) 05/08/19 17:00 Urine Blood Mod (Negative) 05/08/19 17:00 Urine Nitrite Neg (Negative) 05/08/19 17:00 Urine Bilirubin Neg (Negative) 05/08/19 17:00 Urine Urobilinogen < 2.0 mg/dL (<2.0) 05/08/19 17:00 Ur Leukocyte Esterase Neg (Negative) 05/08/19 17:00 Urine WBC (Auto) 3.0 /HPF (0.0-6.0) 05/08/19 17:00 Urine RBC (Auto) 19.0 /HPF (0.0-6.0) 05/08/19 17:00 U Epithel Cells (Auto) < 1.0 /HPF (0-13.0) 05/08/19 17:00 Urine Mucus Few /HPF 05/08/19 17:00 Urine Opiates Screen Presumptive negative 05/09/19 Unknown Urine Methadone Screen Presumptive negative 05/09/19 Unknown Ur Barbiturates Screen Presumptive negative 05/09/19 Unknown Ur Phencyclidine Scrn Presumptive negative 05/09/19 Unknown Ur Amphetamines Screen Presumptive negative 05/09/19 Unknown U Benzodiazepines Scrn Presumptive negative 05/09/19 Unknown Urine Cocaine Screen Presumptive negative 05/09/19 Unknown U Marijuana (THC) Screen Presumptive negative 05/09/19 Unknown Drugs of Abuse Note Disclamer 05/09/19 Unknown - Discharge Diagnoses (1) Schizoaffective disorder, mixed type Status: Acute (2) Alcohol use disorder Status: Acute (3) Cocaine use disorder Status: Acute Core Measure Documentation - Palliative Care Palliative Care/ Comfort Measures: Not Applicable - Core Measures Any of the following diagnoses?: none Exam - Constitutional Vitals: Temp Pulse Resp BP Pulse Ox 97.8 F 62 18 114/64 97 05/12/19 20:29 05/13/19 09:41 05/12/19 20:29 05/13/19 09:41 05/13/19 09:28 General appearance: Present: no acute distress - EENT Eyes: Present: PERRL, EOM intact ENT: clear oral mucosa - Neck Neck: Present: supple, normal ROM - Respiratory Respiratory effort: normal Plan Activity: no restrictions Weight Bearing Status: Weight Bear as Tolerated Care Plan Goals: Maintain good and stable mood Plan of Treatment: Take medications as prescribed and attend follow-up appointments Health Concerns: Diabetes Assessment: Schizoaffective disorder Follow up with: PRIMARY CARE, [Primary Care Provider] - 7 Days Prescriptions: Depakote Dr 1,000 mg PO QHS #30 QUEtiapine [SEROquel] 300 mg PO QHS #60 tablet Depakote 500 mg PO QAM #30 QUEtiapine [SEROquel] 50 mg PO BIDBL #120 tablet
== END 2019-05-13 12:07 | disposition home or self-care (01) | DRG 885 ==
LOC: 3A 15:29 → UNDOADMIN 15:29 → 5A 19:39
PROVIDERS: ADMIT Psychiatry & Neurology Psychiatry; ATTEND Psychiatry & Neurology Psychiatry
DX: F25.0 Schizoaffective disorder, bipolar type (principal); F10.188 Alcohol abuse with other alcohol-induced disorder; E66.9 Obesity, unspecified; E78.5 Hyperlipidemia, unspecified; I10 Essential (primary) hypertension; E11.9 Type 2 diabetes mellitus without complications; F17.200 Nicotine dependence, unspecified, uncomplicated; F14.188 Cocaine abuse with other cocaine-induced disorder; N40.0 Benign prostatic hyperplasia without lower urinary tract symptoms; R33.9 Retention of urine, unspecified; Z60.2 Problems related to living alone; Y90.9 Presence of alcohol in blood, level not specified; Z88.2 Allergy status to sulfonamides; Z68.34 Body mass index [BMI] 34.0-34.9, adult; Z88.8 Allergy status to other drugs, medicaments and biological substances; Z79.4 Long term (current) use of insulin; Z82.49 Family history of ischemic heart disease and other diseases of the circulatory system; Z83.3 Family history of diabetes mellitus; Z79.899 Other long term (current) drug therapy
CPT/HCPCS: 36415; 80053; 80061; 80307; 81001; 82962; 83036; 85025; G0378; A9270-GY; J1650; J1815